=== PATIENT | female | born 1985 | race Caucasian/White ===

== ENCOUNTER 2016-10-08 13:50 | Emergency (ER) | payer BC ==
[~2016-10-08] VITALS: Ht 172.7 cm; Wt 155.4 kg
[2016-10-08 13:58] VITALS: TEMP 36.8; Ht 172.7 cm; Wt 155.4 kg
[2016-10-08] MEDS ORDERED: KETOROLAC TROMETHAMINE 60 MG/2 ML VIAL IM STA (15:15)
[2016-10-08] MEDS ORDERED: PROMETHAZINE HCL INJ 25 MG/ML 1 ML VIAL IM STA (15:15)
[2016-10-08] MEDS ORDERED: MoRPHine SULFATE 10 MG/ML CARP/VIAL IM STA (15:15)
[2016-10-08] MEDS ORDERED: SODIUM CHLORIDE 0.9% 1000ML 1,000 ML IV STA (15:15)
[2016-10-08 17:06] VITALS: BP 139/98; PULSE 79; O2SAT 99
--- NOTE | 2016-10-08 17:59 | EMERGENCY ROOM VISIT NOTE ---
History Report prepared by Weston: Linda Sherman Under the Supervision of: Dr. Juan Camacho D.O. First contact with patient: 15:06 Chief Complaint: HEADACHE Stated Complaint: SEVERE MIGRAINE NAUSEA DEHYDRATION History of Present Illness The patient is a 30 year old female who presents to the Emergency Room with complaints of a gradually worsening headache since yesterday. Currently, her pain is located on the left side of her head, and she rates her discomfort as an 8/10. Patient states that she recently developed a cough, rhinorrhea and sore throat 3 days prior to arrival. After visiting her PCP yesterday, she was diagnosed with a sinus infection and was given a nasal spray to use. Immediately after using the nasal spray yesterday afternoon, patient states that developed the headache, and despite going to sleep at 1930 last evening, it has continued to worsen since that time. Patient does have a history of migraines and states that her pain today feels typical of her past migraines, but just worse than usual, so she came to the ED for further evaluation. Patient is photophobic, and nauseous, but she denies change in vision, fevers, or weakness in her arms or legs. She states that she does feel dehydrated and is requesting IV fluids. Patient denies chest pain, shortness of breath, vomiting, diarrhea, pain with urination, and melena. Source of History: patient Onset: yesterday afternoon Position: head (left ) Symptom Intensity: 8/10 Quality: ache Timing: worsening Modifying Factors (Worsening): other (using nasal spray) Associated Symptoms: + nausea, No SOB, No abdominal pain, No chest pain, No diarrhea, No fevers, No melena, No urinary symptoms, No vomiting Note: Patient is photophobic. Review of Systems See HPI for pertinent positives & negatives. A total of 10 systems reviewed and were otherwise negative. Past Medical & Surgical Medical Problems: (1) Migraine Unspecified W/O Intractable Migraine (2) Obesity, Nos (3) Tonsillectomy Family History Diabetes mellitus Heart disease Social History Smoking Status: Never Smoker Alcohol Use: none Drug Use: none Marital Status: Housing Status: lives with family Occupation Status: employed Current/Historical Medications Scheduled Cholecalciferol (Vitamin D3), 2,000 UNITS PO DAILY Multivit/Min/Iron/Fol Ac/Pren ( Vitamin), 1 TAB PO DAILY Turmeric (Curcuma Longa) (Turmeric), 1,000 MG PO BID Scheduled PRN Kvwxufh-Dbzpsvviniqcd-Tskhidel (Excedrin Migraine), 2 TABS PO DAILY PRN for Migraine Sjytnfrfup-Chluzfc-Jfaqbxje (Butal/Asa/Caff), 1-2 CAP PO Q4H PRN for Migraine Clonazepam (Clonazepam), 1 MG PO BID PRN for Anxiety Oxycodone/Acetaminophen 5MG/325MG (Oxycodone/Acetaminophen 5MG/325MG), 1-2 TABS PO Q6H PRN for Migraine Promethazine Hcl (Phenergan), 25 MG PO Q4H PRN for Nausea Sumatriptan Succinate (Imitrex), 100 MG PO UD PRN for Migraine Allergies Coded Allergies: Cefuroxime (Verified Allergy, Intermediate, mouth ulcers, 10/08/16) Sulfa Drugs (Verified Allergy, Mild, 10/08/16) Ondansetron (Verified Allergy, Unknown, SWELLING, 10/08/16) Penicillins (Verified Allergy, Unknown, UNKN, 10/08/16) Tramadol (Verified Adverse Reaction, Unknown, MIGRAINE, 10/08/16) PT TOOK TRAMADOL THIS MORNING, THINKS MIGRAINE MIGHT BE FROM THAT Physical Exam Vital Signs Date Time Temp Pulse Resp B/P Pulse Ox O2 Delivery O2 Flow Rate FiO2 10/08/16 17:06 79 20 139/98 99 10/08/16 16:35 79 20 139/98 99 Room Air 10/08/16 13:58 36.8 95 19 138/91 96 Room Air Physical Exam GENERAL: Laying in bed, disheveled appearing but no acute distress. EYE EXAM: normal conjunctiva, PERRL and EOM's intact OROPHARYNX: no exudate, no erythema, lips, buccal mucosa, and tongue normal and mucous membranes are moist NECK: supple, no nuchal rigidity, no adenopathy, non-tender. No Brudzinski's sign. LUNGS: Clear to auscultation. Normal chest wall mechanics HEART: no murmurs, S1 normal and S2 normal ABDOMEN: abdomen soft, non-tender, normo-active bowel sounds, no masses, no rebound or guarding. BACK: Back is symmetrical on inspection and there is no deformity, no midline tenderness, no CVA tenderness. SKIN: no rashes and no bruising UPPER EXTREMITIES: upper extremities are grossly normal. LOWER EXTREMITIES: No pitting edema. NEURO EXAM: Normal sensorium, cranial nerves II-XII intact, normal speech, no weakness of arms, no weakness of legs. No drift. Finger to nose intact. Gross sensation intact. Medical Decision & Procedures Medications Administered Medications (Trade) Dose Ordered Sig/Vickey Route Start Time Stop Time Status Last Admin Dose Admin Morphine Sulfate (MoRPHine SULFATE INJ) 10 mg NOW STAT IM 10/08/16 15:15 10/08/16 15:17 DC 10/08/16 16:12 10 MG Promethazine HCl (Phenergan Inj) 25 mg NOW STAT IM 10/08/16 15:15 10/08/16 15:17 DC 10/08/16 16:11 25 MG Ketorolac Tromethamine (Toradol Inj) 60 mg NOW STAT IM 10/08/16 15:15 10/08/16 15:17 DC 10/08/16 16:11 60 MG ED Course ED COURSE: Vital signs were reviewed and showed hypertension. The patients medical record was reviewed The above diagnostic studies were performed and reviewed. ED treatments and interventions as stated above. 1508: The patient was evaluated in room C9. A complete history and physical examination was performed. 1515: NSS bolus IV, Toradol 60 mg IM, Phenergan 25 mg IM and Morphine Sulfate 10 mg IM were ordered. 1644: Upon reevaluation, the patient was feeling improved. She continued to refuse LP or a CT for further evaluation. Discharge instructions were discussed at this time. She verbalized her understanding and agreement with the treatment plan, and she is now ready for disposition. The patient remained stable while under my care. The patient appeared well at the time of discharge. Medical Decision Differential Diagnosis includes but is not limited to headache, tension headache , cluster headache, migraine, subarachnoid hemorrhage, meningitis, mass, central venous thrombus, concussion, trauma and epidural/subdural hemorrhage. Patient is a 30-year-old female who presents the ER for headache located on the left side associated with nausea. She notes that this feels like her previous migraines but slightly worse. Headache, gradual and gradually worsened. No fevers greater than 100.4, no signs of meningitis or encephalitis on exam. Patient did note that this is a severe headache and consequently I offered an LP and CT which she declined. She was given IM pain medications with improvement of her symptoms. I again offered CT and LP but she declined. I explained the risk and benefits to this and she was discharged following informed refusal of care. She is instructed not drive, work, operate heavy machinery for the next 12 hours. Discussed with Pt concerning signs and symptoms to watch out for. Pt was instructed to follow up with their PCP and discussed with the patient their option to return to the ED at anytime for persistent or worsening symptoms. The appropriate anticipatory guidance and out- patient management, including indications for return to the emergency department , were explained at length to the patient and understood. Impression Primary Impression: Cephalalgia Scribe Attestation The scribe's documentation has been prepared under my direction and personally reviewed by me in its entirety. I confirm that the note above accurately reflects all work, treatment, procedures, and medical decision making performed by me. Departure Information Dispostion Home / Self-Care Referrals Andrew Bee MD (PCP) Forms HOME CARE DOCUMENTATION FORM, IMPORTANT VISIT INFORMATION Patient Instructions A Signature Page, My [facility] [employer] Additional Instructions Please follow up with your primary care doctor with in the next 24 hours. Any worsening of your symptoms, please return to the ED immediately. This includes weakness in your arms or legs, change in vision, worsening headache, fevers greater than 100.4, or any other concerning signs or symptoms from your standpoint. Please not drive, work, operate heavy machinery for the next 12 hours with the medications are given in the ER.
[2017-03-12] MEDS ORDERED: PROM25TA9 PO (09:03)
[2017-03-12] MEDS ORDERED: ASPI-390 PO (10:58)
[2017-03-12] MEDS ORDERED: IMT100 PO (12:31)
[2017-03-12] MEDS ORDERED: CETI10TA84 PO (15:34)
[2017-03-12] MEDS ORDERED: CHOL2000 PO (15:57)
[2017-03-12] MEDS ORDERED: TURM1CAP4 PO (16:03)
[2017-03-12] MEDS ORDERED: KLN1X PO (16:07)
[2017-03-12] MEDS ORDERED: BUTACAP7 PO (16:07)
[2017-03-12] MEDS ORDERED: PRENTAB26 PO (17:20)
== END 2016-10-08 17:07 | disposition home or self-care (01) ==
LOC: C.EDB 13:53 → C.EDC 17:07
DX: R51 Headache (principal); Z79.899 Other long term (current) drug therapy; Z98.890 Other specified postprocedural states; Z83.3 Family history of diabetes mellitus; Z82.49 Family history of ischemic heart disease and other diseases of the circulatory system; Z88.0 Allergy status to penicillin; Z88.2 Allergy status to sulfonamides; Z88.5 Allergy status to narcotic agent

== ENCOUNTER 2016-10-16 15:10 | Emergency (ER) | payer BC ==
[~2016-10-16] VITALS: Ht 170.2 cm; Wt 153.0 kg
[2016-10-16 15:19] VITALS: TEMP 36.7; Ht 170.2 cm; Wt 153.0 kg
[2016-10-16] MEDS ORDERED: PROMETHAZINE HCL INJ 25 MG/ML 1 ML VIAL IM STA (15:34)
[2016-10-16] MEDS ORDERED: KETOROLAC TROMETHAMINE 60 MG/2 ML VIAL IM STA (15:34)
[2016-10-16] MEDS ORDERED: MoRPHine SULFATE 10 MG/ML CARP/VIAL IM STA (15:34)
[2016-10-16] MEDS ORDERED: DOXY100C2 PO (15:43)
[2016-10-16] MEDS ORDERED: BENZ100C84 PO (15:43)
[2016-10-16] MEDS ORDERED: ASTN NAE (15:43)
[2016-10-16] MEDS ORDERED: GUAISYP4 PO (15:43)
--- NOTE | 2016-10-16 15:49 | EMERGENCY ROOM VISIT NOTE ---
History Report prepared by Weston: Dalila Mejias Under the Supervision of: Dr. Ignrid Castanon M.D. First contact with patient: 15:25 Chief Complaint: HEADACHE Stated Complaint: SEVERE MIGRAINE, NAUSEA History of Present Illness The patient is a 31 year old female who presents to the Emergency Room with complaints of a constant headache that started yesterday. She states that this is not the same as her typical headaches because she can't get rid of it due to her cough. She started experiencing a cough 2 weeks ago and saw her PCP. She went back to her PCP and was diagnosed with a sinus infection 1 week ago. She is supposed to started Levaquin tomorrow because the doxycycline wasn't working. She has not checked her temperature for a fever. She is also experiencing photophobia. Source of History: patient Onset: yesterday Position: head Quality: other (headache) Timing: constant Note: photophobia Review of Systems See HPI for pertinent positives & negatives. A total of 10 systems reviewed and were otherwise negative. Past Medical & Surgical Medical Problems: (1) Migraine Unspecified W/O Intractable Migraine (2) Obesity, Nos (3) Tonsillectomy Family History Diabetes mellitus Heart disease Social History Smoking Status: Never Smoker Alcohol Use: none Drug Use: none Marital Status: Housing Status: lives with family Occupation Status: employed Current/Historical Medications Scheduled Azelastine Hcl (Astelin Nasal [place]), 1 SPRAY [place]KE BID Cholecalciferol (Vitamin D3), 2,000 UNITS PO DAILY Doxycycline Hyclate (Vibramycin), 100 MG PO BID Multivit/Min/Iron/Fol Ac/Pren ( Vitamin), 1 TAB PO DAILY Turmeric (Curcuma Longa) (Turmeric), 1,000 MG PO BID Scheduled PRN Jufmygo-Jdpoxablyqzjs-Aiytxezn (Excedrin Migraine), 2 TABS PO DAILY PRN for Migraine Benzonatate (Tessalon Perles), 100 MG PO Q8 PRN for Cough Cdpvgnhkfy-Sbwgrgf-Iryktkll (Butal/Asa/Caff), 1-2 CAP PO Q4H PRN for Migraine Clonazepam (Clonazepam), 1 MG PO BID PRN for Anxiety Guaifenesin/Codeine (Robitussin-Ac Syrup), 5 ML PO Q4 PRN for Cough Oxycodone/Acetaminophen 5MG/325MG (Oxycodone/Acetaminophen 5MG/325MG), 1-2 TABS PO Q6H PRN for Migraine Promethazine Hcl (Phenergan), 25 MG PO Q4H PRN for Nausea Sumatriptan Succinate (Imitrex), 100 MG PO UD PRN for Migraine Allergies Coded Allergies: Cefuroxime (Verified Allergy, Intermediate, mouth ulcers, 10/08/16) Sulfa Drugs (Verified Allergy, Mild, 10/08/16) Ondansetron (Verified Allergy, Unknown, SWELLING, 10/08/16) Penicillins (Verified Allergy, Unknown, UNKN, 10/08/16) Tramadol (Verified Adverse Reaction, Unknown, MIGRAINE, 10/08/16) PT TOOK TRAMADOL THIS MORNING, THINKS MIGRAINE MIGHT BE FROM THAT Physical Exam Vital Signs Date Time Temp Pulse Resp B/P Pulse Ox O2 Delivery O2 Flow Rate FiO2 10/16/16 16:36 86 18 125/75 100 Room Air 10/16/16 15:19 36.7 111 22 162/101 98 Room Air Physical Exam Vital signs reviewed. General: Well-appearing female, in no significant distress. HEENT: No scleral icterus, PERRLA, neck supple. Atraumatic. Cardiovascular: Regular rate and rhythm, no extra sounds. Pulmonary: Clear to auscultation bilaterally, normal work of breathing. Abdomen: Soft, nontender, nondistended, positive bowel sounds. Musculoskeletal: Atraumatic, no peripheral edema. Neurologic: Patient awake alert and oriented x 3, full strength in all 4 extremities. Cranial nerves 2 through 12 grossly intact. Skin: Warm, dry, no rash Medical Decision & Procedures Medications Administered Medications (Trade) Dose Ordered Sig/Vickey Route Start Time Stop Time Status Last Admin Dose Admin Morphine Sulfate (MoRPHine SULFATE INJ) 10 mg NOW STAT IM 10/16/16 15:34 10/16/16 15:36 DC 10/16/16 15:56 10 MG Promethazine HCl (Phenergan Inj) 25 mg NOW STAT IM 10/16/16 15:34 10/16/16 15:36 DC 10/16/16 15:55 25 MG Ketorolac Tromethamine (Toradol Inj) 60 mg NOW STAT IM 10/16/16 15:34 10/16/16 15:36 DC 10/16/16 15:55 60 MG ED Course 1533: Past medical records reviewed. The patient was evaluated in room C4. A complete history and physical examination was performed. 1534: Ordered Toradol 60 mg IM, Phenergan 25 mg IM, Morphine Sulfate 10 mg IM 1644: Upon reevaluation, the patient appeared to have improvement of her symptoms. I discussed findings with her. She verbalized agreement of the treatment plan. She was discharged home. Medical Decision The patient is a 31 year old female who presents to the Emergency Room with complaints of a constant headache that started yesterday. Differentials include migraine headache, meningitis, sinusitis, CO exposure, ICH, SAH, infection, tumor, headache, sinus thrombosis, arterial dissection. This pt was evaluated and appeared to be in some discomfort. Patient's physical exam is fairly unrevealing. The patient was medicated with IM morphine , phenergan and Toradol. She had significant improvement in her symptoms. Pt was d/c to care of her to f/u with her primary care physician this week. She will return to the ER for worsening of symptoms or any medical concerns. Impression Primary Impression: Migraine headache without aura Scribe Attestation The scribe's documentation has been prepared under my direction and personally reviewed by me in its entirety. I confirm that the note above accurately reflects all work, treatment, procedures, and medical decision making performed by me. Departure Information Dispostion Home / Self-Care Referrals Andrew Bee MD (PCP) Forms HOME CARE DOCUMENTATION FORM, IMPORTANT VISIT INFORMATION Patient Instructions My [facility] Additional Instructions Diagnosis: Migraine headache Continue medications as prescribed. Drink plenty of water. Follow-up with your physician for reevaluation. Return to the ER for worsening of symptoms or any medical concerns. Problem Qualifiers Primary Impression: Migraine headache without aura Status migrainosus presence: with status migrainosus Intractability: intractable Qualified Codes: G43.011 - Migraine without aura, intractable, with status migrainosus
[2016-10-16 16:36] VITALS: BP 125/75; PULSE 86; O2SAT 100
[2017-03-12] MEDS ORDERED: PROM25TA9 PO (09:03)
[2017-03-12] MEDS ORDERED: ASPI-390 PO (10:58)
[2017-03-12] MEDS ORDERED: IMT100 PO (12:31)
[2017-03-12] MEDS ORDERED: CETI10TA84 PO (15:34)
[2017-03-12] MEDS ORDERED: CHOL2000 PO (15:57)
[2017-03-12] MEDS ORDERED: TURM1CAP4 PO (16:03)
[2017-03-12] MEDS ORDERED: BUTACAP7 PO (16:07)
[2017-03-12] MEDS ORDERED: KLN1X PO (16:07)
[2017-03-12] MEDS ORDERED: PRENTAB26 PO (17:20)
== END 2016-10-16 17:01 | disposition home or self-care (01) ==
LOC: C.EDB 15:11 → C.EDC 17:01
DX: G43.709 Chronic migraine without aura, not intractable, without status migrainosus (principal); E66.9 Obesity, unspecified; Z98.890 Other specified postprocedural states; Z88.0 Allergy status to penicillin; Z88.2 Allergy status to sulfonamides; Z88.8 Allergy status to other drugs, medicaments and biological substances; Z83.3 Family history of diabetes mellitus; Z82.49 Family history of ischemic heart disease and other diseases of the circulatory system

== ENCOUNTER 2016-10-19 16:14 | Emergency (ER) | payer BC ==
[~2016-10-19] VITALS: Ht 170.2 cm; Wt 152.8 kg
[~2016-10-19 16:14] MED LIST: ASTN NAE; BENZ100C84 PO; DOXY100C2 PO; GUAISYP4 PO
[2016-10-19 16:19] VITALS: TEMP 36.7; Ht 170.2 cm; Wt 152.8 kg
[2016-10-19] MEDS ORDERED: LEVO1TAB33 PO (17:33)
[2016-10-19] MEDS ORDERED: SODIUM CHLORIDE 0.9% 1000ML 1,000 ML IV STA (17:35)
[2016-10-19] MEDS ORDERED: KETOROLAC TROMETHAMINE 30 MG/ML VIAL IV STA (17:35)
[2016-10-19] MEDS ORDERED: PROMETHAZINE HCL INJ 25 MG in SODIUM CHLORIDE 0.9% 50ML 50 ML IV STA (17:35)
[2016-10-19] MEDS ORDERED: PROMETHAZINE HCL INJ 25 MG/ML 1 ML VIAL IM STA (18:27)
[2016-10-19] MEDS ORDERED: KETOROLAC TROMETHAMINE 60 MG/2 ML VIAL IM STA (18:27)
[2016-10-19] MEDS ORDERED: ACETAMINOPHEN 500 MG TAB PO STA (21:05)
[2016-10-19] MEDS ORDERED: PROMETHAZINE HCL INJ 12.5 MG in SODIUM CHLORIDE 0.9% 50ML 50 ML IV STA (21:05)
[2016-10-19 21:30] LABS: ALKALINE PHOSPHATASE 75 U/L (45-117); ALT/SGPT 30 U/L (12-78); BLOOD UREA NITROGEN 16 mg/dl (7-18); BUN/CREATININE RATIO 18.7 (10-20); CALCIUM 8.2 mg/dl (8.5-10.1); CARBON DIOXIDE 19 mmol/L (21-32); CHLORIDE 109 mmol/L (98-107); CREATININE 0.84 mg/dl (0.60-1.20); GLUCOSE 75 mg/dl (70-99); SODIUM 142 mmol/L (136-145)
[2016-10-19 21:40] LABS: BASO % 0.2 %; BASO ABS # 0.02 K/uL (0-0.2); COMPLETE YES; EOS % 0.1 %; HEMATOCRIT 42.3 % (37-47); IG% 0.4 %; LYMPH % 17.5 %; LYMPH ABS # 1.85 K/uL (1.2-3.4); MEAN CELL VOLUME 90.6 fL (80-100); MEAN CORPUSCULAR HEMOGLOBIN 32.3 pg (25-34); MEAN CORPUSCULAR HGB CONC 35.7 g/dl (32-36); MEAN PLATELET VOLUME 9.5 fL (7.4-10.4); NEUT % 75.8 %; PLATELET COUNT 248 K/uL (130-400); RED BLOOD COUNT 4.67 M/uL (4.2-5.4); WHITE BLOOD COUNT 10.57 K/uL (4.8-10.8)
[2016-10-19] MEDS ORDERED: PROM1SUP19 PR (21:41)
--- NOTE | 2016-10-19 21:43 | EMERGENCY ROOM VISIT NOTE ---
History First contact with patient: 17:27 Chief Complaint: VOMITING Stated Complaint: SEVER NAUSEA, VOMITING, ABD PAIN Nursing Triage Summary: Pt seen here Fri for a migraine. Pt reports n/v/d and diffuse abd pain since midnight. History of Present Illness The patient is a 31 year old female who is well-known to the emergency room department presents to the Emergency Room with complaints of diffuse abdominal pain, nausea, vomiting, diarrhea that started at midnight. The patient denies any fever, chest pain or shortness of breath. The patient does admit she's had recent cold symptoms which she was initially on doxycycline and yesterday was switched to Levaquin. The patient denies any urinary symptoms of frequency, urgency, dysuria. The patient denies any back pain. The patient does admit that a coworker has similar symptoms. The patient has not been able to keep anything down today. Review of Systems 10 system review was performed and was negative unless stated otherwise history of present illness. Past Medical/Surgical History Medical Problems: (1) Migraine Unspecified W/O Intractable Migraine (2) Obesity, Nos (3) Tonsillectomy Family History Diabetes mellitus Heart disease Social History Smoking Status: Never Smoker Alcohol Use: none Drug Use: none Marital Status: Housing Status: lives with family Occupation Status: employed Current/Historical Medications Scheduled Azelastine Hcl (Astelin Nasal [place]), 1 SPRAY DUKE BID Cholecalciferol (Vitamin D3), 2,000 UNITS PO DAILY Doxycycline Hyclate (Vibramycin), 100 MG PO BID Levofloxacin (Levaquin), 1 TAB PO DAILY Multivit/Min/Iron/Fol Ac/Pren ( Vitamin), 1 TAB PO DAILY Turmeric (Curcuma Longa) (Turmeric), 1,000 MG PO BID Scheduled PRN Vjrrlbl-Zwnbqwxcejbio-Cbwuphpb (Excedrin Migraine), 2 TABS PO DAILY PRN for Migraine Benzonatate (Tessalon Perles), 100 MG PO Q8 PRN for Cough Swilmbbjiq-Sohbgds-Bpyqxhwc (Butal/Asa/Caff), 1-2 CAP PO Q4H PRN for Migraine Clonazepam (Clonazepam), 1 MG PO BID PRN for Anxiety Guaifenesin/Codeine (Robitussin-Ac Syrup), 5 ML PO Q4 PRN for Cough Oxycodone/Acetaminophen 5MG/325MG (Oxycodone/Acetaminophen 5MG/325MG), 1-2 TABS PO Q6H PRN for Migraine Promethazine Hcl (Phenergan), 25 MG PO Q4H PRN for Nausea Sumatriptan Succinate (Imitrex), 100 MG PO UD PRN for Migraine Allergies Coded Allergies: Cefuroxime (Verified Allergy, Intermediate, mouth ulcers, 10/08/16) Sulfa Drugs (Verified Allergy, Mild, 10/08/16) Ondansetron (Verified Allergy, Unknown, SWELLING, 10/08/16) Penicillins (Verified Allergy, Unknown, UNKN, 10/08/16) Tramadol (Verified Adverse Reaction, Unknown, MIGRAINE, 10/08/16) PT TOOK TRAMADOL THIS MORNING, THINKS MIGRAINE MIGHT BE FROM THAT Physical Exam Vital Signs Date Time Temp Pulse Resp B/P Pulse Ox O2 Delivery O2 Flow Rate FiO2 10/19/16 21:13 88 22 145/91 99 Room Air 10/19/16 19:10 105 20 130/91 95 Room Air 10/19/16 16:19 36.7 126 20 139/95 98 Room Air Physical Exam GENERAL: Obese 31-year-old white female appears in no acute distress. MENTAL STATUS: Alert and oriented 3 EYES: No icterus noted MOUTH: Mucosa is moist NECK: Supple, no lymphadenopathy noted. No carotid bruits noted. LUNGS: Clear auscultation without wheezes rales or rhonchi. CARDIAC: Regular rate and rhythm without murmur. Pulses is full and equal throughout. BACK: No CVA tenderness noted. ABDOMEN: Positive bowel sounds all 4 quadrants. Soft, generalized tenderness to palpation throughout. No organomegaly or masses noted. EXTREMITIES: No cyanosis or edema noted. Medical Decision & Procedures Laboratory Results 10/19/16 20:38 Test 10/19/16 20:38 Anion Gap 14.0 mmol/L (3-11) Est Creatinine Clear Calc Drug Dose 150.3 ml/min Estimated GFR () 107.3 Estimated GFR (Non- 92.6 BUN/Creatinine Ratio 18.7 (10-20) Calcium Level 8.2 mg/dl (8.5-10.1) Total Bilirubin 0.6 mg/dl (0.2-1) Direct Bilirubin mg/dl (0-0.2) Aspartate Amino Transf (AST/SGOT) U/L (15-37) Alanine Aminotransferase (ALT/SGPT) 30 U/L (12-78) Alkaline Phosphatase 75 U/L (45-117) Total Protein 6.9 gm/dl (6.4-8.2) Albumin 3.3 gm/dl (3.4-5.0) Lipase 73 U/L (73-393) Medications Administered Medications (Trade) Dose Ordered Sig/Vickey Route Start Time Stop Time Status Last Admin Dose Admin Sodium Chloride (Nss 1000ml) 1,000 ml @ 999 mls/hr Q1H1M STAT IV 10/19/16 17:35 10/19/16 18:35 DC 10/19/16 20:03 999 MLS/HR Ketorolac Tromethamine (Toradol Inj) 60 mg NOW STAT IM 10/19/16 18:27 10/19/16 18:28 DC 10/19/16 18:39 60 MG Promethazine HCl (Phenergan Inj) 25 mg NOW STAT IM 10/19/16 18:27 10/19/16 18:28 DC 10/19/16 18:39 25 MG Acetaminophen 1000 mg 1,000 mg NOW STAT PO 10/19/16 21:05 10/19/16 21:07 DC 10/19/16 21:15 1,000 MG Promethazine HCl/ Sodium Chloride (Phenergan Inj/ Nss 50ml) 50.5 ml @ 204 mls/hr NOW STAT IV 10/19/16 21:05 10/19/16 21:19 DC 10/19/16 21:05 204 MLS/HR ED Course The patient was evaluated. The patient's EMR was reviewed. The patient is on a narcotic injection treatment plan for her migraine headaches. She has already received 2 narcotic injections this month. IV access was obtained. She was given 1 L normal saline wide-open. CBC and differential, renal profile , LFTs and lipase levels was ordered. Stool studies were ordered for C. difficile, culture and WBCs. The patient was given Toradol 60 mg IM for pain and Phenergan 25 mg IM for nausea since the nurses could not access her veins. IV team was called but took over 1 hour to come to the emergency room to draw labs. They got IV access but were unable to take blood from the vein therefore they did finger sticks to get the blood. She was able to receive the saline IV. The patient was in the emergency room for extended period of time due to difficulty with the patient's veins therefore she was given additional Tylenol 1 g by mouth for pain and Phenergan 12.5 mg IV for nausea.. The patient was reevaluated on several occasions while in the emergency room. Labs are reviewed and were unremarkable. The patient was unable to give a stool sample while in the emergency room. She will do this as an outpatient. The patient is in agreement with treatment plan and was discharged home in stable condition. Medical Decision Differential diagnoses include reflux, gastritis, gastroenteritis, pancreatitis , cholelithiasis, cholecystitis, appendicitis, mesenteric ischemia, pyelonephritis, urinary tract infection, renal colic, diverticulitis, shingles, bowel obstruction, intussusception, hernia, ovarian torsion, ruptured ovarian cyst, ectopic , . Impression Primary Impression: Gastroenteritis Departure Information Dispostion Home / Self-Care Condition [employer] Prescriptions Promethazine (Phenergan Suppository) 25 Mg Supp 25 MG MO Q4H Y for Nausea, #10 SUPP NAUSEA Prov: Katia Means PA-C 10/19/16 Referrals Andrew Bee MD (PCP) Forms HOME CARE DOCUMENTATION FORM, IMPORTANT VISIT INFORMATION Patient Instructions ED Diet Vomiting Diarrhea, My [employer] Additional Instructions Push fluids. Follow bland diet. Advance diet slowly as tolerated. Take Phenergan suppositories as needed for nausea and vomiting. Tylenol as needed for pain. Also recommend [id number] Zantac as needed for stomach upset. Obtaining the stool samples and bring them to the lab as directed. Further evaluation and treatment will be based on results. If you have any worsening of symptoms, return to ER.
[2016-10-19 22:01] VITALS: BP 160/87; PULSE 98; O2SAT 97
[2017-03-12] MEDS ORDERED: PROM25TA9 PO (09:03)
[2017-03-12] MEDS ORDERED: ASPI-390 PO (10:58)
[2017-03-12] MEDS ORDERED: IMT100 PO (12:31)
[2017-03-12] MEDS ORDERED: CETI10TA84 PO (15:34)
[2017-03-12] MEDS ORDERED: CHOL2000 PO (15:57)
[2017-03-12] MEDS ORDERED: TURM1CAP4 PO (16:03)
[2017-03-12] MEDS ORDERED: KLN1X PO (16:07)
[2017-03-12] MEDS ORDERED: BUTACAP7 PO (16:07)
[2017-03-12] MEDS ORDERED: PRENTAB26 PO (17:20)
== END 2016-10-19 22:03 | disposition home or self-care (01) ==
LOC: C.EDB 16:15
DX: K52.9 Noninfective gastroenteritis and colitis, unspecified (principal); E66.9 Obesity, unspecified; Z68.43 Body mass index [BMI] 50.0-59.9, adult

== ENCOUNTER → 2016-10-20 | Outpatient (CLI) | payer BC ==
[~2016-10-20] MED LIST changes: +ASPI-390 PO; +BUTACAP7 PO; +CETI10TA84 PO; +CHOL2000 PO; +IMT100 PO; +KLN1X PO; +LEVO1TAB33 PO; +OXYC-643 PO; +PRENTAB26 PO; +PROM1SUP19 PR; +PROM25TA9 PO; +TURM1CAP4 PO
== END | disposition home or self-care (01) ==
LOC: C.LABSPEC 17:28
PROVIDERS: ATTEND Emergency Medicine
DX: R19.7 Diarrhea, unspecified (principal)

== ENCOUNTER 2016-11-11 14:06 | Emergency (ER) | payer BC ==
[~2016-11-11] VITALS: Ht 170.2 cm; Wt 152.6 kg
[~2016-11-11 14:06] MED LIST changes: -ASPI-390 PO; -BUTACAP7 PO; -CETI10TA84 PO; -CHOL2000 PO; -IMT100 PO; -KLN1X PO; -OXYC-643 PO; -PRENTAB26 PO; -PROM25TA9 PO; -TURM1CAP4 PO
[2016-11-11 14:09] VITALS: TEMP 36.6; Ht 170.2 cm; Wt 152.6 kg
[2016-11-11] MEDS ORDERED: PROMETHAZINE HCL INJ 25 MG/ML 1 ML VIAL IM STA ×2 (14:21→14:26)
[2016-11-11] MEDS ORDERED: KETOROLAC TROMETHAMINE 60 MG/2 ML VIAL IM STA (14:21)
[2016-11-11] MEDS ORDERED: MoRPHine SULFATE 10 MG/ML CARP/VIAL IM STA (14:21)
--- NOTE | 2016-11-11 14:29 | EMERGENCY ROOM VISIT NOTE ---
ED Visit Note First contact with patient: 14:13 CHIEF COMPLAINT: Migraine headache HISTORY OF PRESENT ILLNESS: This 31-year-old female patient presented to the emergency department via private vehicle accompanied by male friend with a gradual onset of a severe generalized headache that started this past or Wednesday and is gradually increased. The patient states the migraine is similar to their typical migraines. There has been associated photophobia, phonophobia, nausea and no vomiting. The patient denies fever or chills recently , and there is no weakness or numbness of the extremities. There is no difficulty with speech or vision. No trauma to the head and no neck pain. The pain is severe, constant, and it is slowly increasing in severity. The patient rates the pain as a 7 her typical medications to include Phenergan, Excedrin, ibuprofen, Percocet, Imitrex, Fioricet without relief. This is not the worst headache of the life and is similar to previous migraines. Previous imaging studies of the brain have been normal. She follows with a neurologist. The headache is located in the front portion of her head. REVIEW OF SYSTEMS: A review of systems was performed with positives and pertinent negatives listed in the history of present illness. All other systems were reviewed and are negative. ALLERGIES: As noted below MEDICATIONS: As noted below PMH: As noted below SOCIAL HISTORY: Patient lives at home. PHYSICAL EXAM: Vital Signs: Reviewed Nurse's notes, vital signs stable. GENERAL : 31-year-old female, who appears in pain, but non toxic in appearance and in no acute distress. MENTAL STATUS: Alert, oriented, and coherent. HEENT: Normocephalic. PERRLA. EOMI. Nares patent without nuchal rigidity. Tympanic membranes pearly silva without erythema or effusion bilaterally. Mucous membranes moist. NECK: Supple, no nuchal rigidity, nontender, no lymphadenopathy. HEART: Regular rhythm and normal rate without murmurs, ectopy, gallops, or rubs. LUNGS: Clear to auscultation bilaterally without wheezes, rales or rhonchi. No dullness to percussion. No accessory muscle use. No retractions. SKIN: Normal. NEUROLOGICAL: Pupils are round, equal and react to light. The patient moves all extremities well and the gait is normal. EMERGENCY DEPARTMENT COURSE: I examined the patient. The patient is on a 2 narcotic injection per month treatment plan for their migraines. The patient was given 2 mg of morphine IM, 25 mg of Phenergan IM, and 60 mg of Toradol per their usual protocol. The differential diagnosis includes acute intracranial bleed, meningitis, encephalitis, mass or mass effect, sinusitis, infection, tumor, headache, temporal arteritis and carbon monoxide exposure, and migraine. The patient was discharged home in stable condition with male friend driving. In the evaluation and treatment of this patient, the following differential diagnoses were considered: Migraine Headache, Intracranial Hemorrhage, Subdural Hematoma, Subarachnoid Hemorrhage, Cerebral Aneurysm, Temporal/Giant Cell Arteritis, Tension Headache, Meningitis, Encephalitis, or Hydrocephalus. Problem List Medical Problems: (1) Migraine Unspecified W/O Intractable Migraine Status: Chronic (2) Obesity, Nos Status: Chronic (3) Tonsillectomy Status: Resolved Current/Historical Medications Scheduled Azelastine Hcl (Astelin Nasal [place]), 1 SPRAY [place] BID Cholecalciferol (Vitamin D3), 2,000 UNITS PO DAILY Doxycycline Hyclate (Vibramycin), 100 MG PO BID Levofloxacin (Levaquin), 1 TAB PO DAILY Multivit/Min/Iron/Fol Ac/Pren ( Vitamin), 1 TAB PO DAILY Turmeric (Curcuma Longa) (Turmeric), 1,000 MG PO BID Scheduled PRN Wkwssmg-Cbcmyjgorjxrx-Lxvicntf (Excedrin Migraine), 2 TABS PO DAILY PRN for Migraine Benzonatate (Tessalon Perles), 100 MG PO Q8 PRN for Cough Rlfvnbciee-Kbjbffd-Zcrprtfu (Butal/Asa/Caff), 1-2 CAP PO Q4H PRN for Migraine Clonazepam (Clonazepam), 1 MG PO BID PRN for Anxiety Guaifenesin/Codeine (Robitussin-Ac Syrup), 5 ML PO Q4 PRN for Cough Oxycodone/Acetaminophen 5MG/325MG (Oxycodone/Acetaminophen 5MG/325MG), 1-2 TABS PO Q6H PRN for Migraine Promethazine (Phenergan Suppository), 25 MG [place] Q4H PRN for Nausea Promethazine Hcl (Phenergan), 25 MG PO Q4H PRN for Nausea Sumatriptan Succinate (Imitrex), 100 MG PO UD PRN for Migraine Allergies Coded Allergies: Cefuroxime (Verified Allergy, Intermediate, mouth ulcers, 10/08/16) Sulfa Drugs (Verified Allergy, Mild, 10/08/16) Ondansetron (Verified Allergy, Unknown, SWELLING, 10/08/16) Penicillins (Verified Allergy, Unknown, UNKN, 10/08/16) Tramadol (Verified Adverse Reaction, Unknown, MIGRAINE, 10/08/16) PT TOOK TRAMADOL THIS MORNING, THINKS MIGRAINE MIGHT BE FROM THAT Vital Signs Date Time Temp Pulse Resp B/P Pulse Ox O2 Delivery O2 Flow Rate FiO2 11/11/16 14:52 88 18 131/94 96 11/11/16 14:09 36.6 89 18 136/86 98 Room Air Medications Administered Medications (Trade) Dose Ordered Sig/Vickey Route Start Time Stop Time Status Last Admin Dose Admin Morphine Sulfate (MoRPHine SULFATE INJ) 10 mg NOW STAT IM 11/11/16 14:21 11/11/16 14:24 DC 11/11/16 14:39 10 MG Ketorolac Tromethamine (Toradol Inj) 60 mg NOW STAT IM 11/11/16 14:21 11/11/16 14:24 DC 11/11/16 14:40 60 MG Promethazine HCl (Phenergan Inj) 25 mg NOW STAT IM 11/11/16 14:26 11/11/16 14:28 DC 11/11/16 14:40 25 MG Departure Information Impression Primary Impression: Headache Dispostion Home / Self-Care Condition GOOD Referrals Andrew Bee MD (PCP) Patient Instructions My [facility] Additional Instructions You have been treated in the Emergency Department for a Headache. You have received pain medicine in the emergency department which impairs your ability to operate a vehicle. It is illegal for you to drive after receiving these medicines. For pain control, you can use the following aiqn-ynp-omfdayc medicines (if >12 yo): - Regular strength (325mg/tab) Tylenol (acetaminophen) 2 tabs every 4-6 hours as needed. Do not exceed 12 tablets in a 24 hour period. Avoid taking more than 4 grams (4000 mg) of Tylenol per day. This includes any other sources of acetaminophen you may take on a regular basis. - Regular strength (200 mg/tab) Advil (ibuprofen) 1-2 tabs every 4-6 hours as needed. Do not exceed a dose of 3200 mg per day. You should relax in a quiet, dark place for the rest of the day. Avoid any possible triggers including: cigarette smoke, caffeine, nicotine, chocolate, wine, beer, loud noises or music, or bright lights. You should schedule a follow-up appointment in 2-3 days with your Primary Care Provider or established Neurologist for further evaluation and treatment of your Headache. Return to the Emergency Department if your current symptoms worsen despite treatment course outlined above, or if you develop any of the following symptoms : intractable pain despite aforementioned treatment course, visual disturbances , loss of vision, unilateral weakness or facial drooping, slurring of speech, loss of coordination, or loss of consciousness. Please return to the emergency department with any new/concerning symptoms. Problem Qualifiers Primary Impression: Headache Headache type: unspecified Headache chronicity pattern: chronic headache Intractability: not intractable Qualified Codes: R51 - Headache
[2016-11-11 14:52] VITALS: BP 131/94; PULSE 88; O2SAT 96
[2017-03-12] MEDS ORDERED: PROM25TA9 PO (09:03)
[2017-03-12] MEDS ORDERED: ASPI-390 PO (10:58)
[2017-03-12] MEDS ORDERED: IMT100 PO (12:31)
[2017-03-12] MEDS ORDERED: CETI10TA84 PO (15:34)
[2017-03-12] MEDS ORDERED: CHOL2000 PO (15:57)
[2017-03-12] MEDS ORDERED: TURM1CAP4 PO (16:03)
[2017-03-12] MEDS ORDERED: BUTACAP7 PO (16:07)
[2017-03-12] MEDS ORDERED: KLN1X PO (16:07)
[2017-03-12] MEDS ORDERED: PRENTAB26 PO (17:20)
== END 2016-11-11 14:53 | disposition home or self-care (01) ==
LOC: C.EDB 14:07 → C.EDD 14:53
DX: R51 Headache (principal); E66.9 Obesity, unspecified; Z79.899 Other long term (current) drug therapy

== ENCOUNTER 2016-11-20 14:34 | Emergency (ER) | payer BC ==
[~2016-11-20] VITALS: Ht 170.2 cm; Wt 149.2 kg
[2016-11-20 14:38] VITALS: TEMP 36.8; Ht 170.2 cm; Wt 149.2 kg
[2016-11-20] MEDS ORDERED: PROMETHAZINE HCL INJ 25 MG/ML 1 ML VIAL IM STA (15:09)
[2016-11-20] MEDS ORDERED: KETOROLAC TROMETHAMINE 60 MG/2 ML VIAL IM STA (15:09)
[2016-11-20] MEDS ORDERED: MoRPHine SULFATE 10 MG/ML CARP/VIAL IM STA (15:09)
--- NOTE | 2016-11-20 15:28 | EMERGENCY ROOM VISIT NOTE ---
ED Visit Note First contact with patient: 14:52 CHIEF COMPLAINT: Migraine headache HISTORY OF PRESENT ILLNESS: This 31-year-old female patient presented to the emergency department ambulatory with a gradual onset of a severe generalized headache that started 3 days ago. The patient states the migraine is similar to their typical migraines. There has been associated photophobia, phonophobia, nausea and vomiting. The patient denies fever or chills recently, and there is no weakness or numbness of the extremities. There is no difficulty with speech or vision. No trauma to the head and no neck pain. The pain is severe, constant , and it is slowly increasing in severity. The patient rates the pain as throbbing and 7/10. The pain is located in the left frontal region. The patient has taken Imitrex and Phenergan without relief. This is not the worst headache of the life and is similar to previous migraines. Previous imaging studies of the brain have been normal. The patient does report that her heart rate and blood pressure are elevated, but this is normal for her when she has migraines. REVIEW OF SYSTEMS: A review of systems was performed with positives and pertinent negatives listed in the history of present illness. All other systems were reviewed and are negative. ALLERGIES: Cefuroxime, Zofran, penicillins, sulfa drugs, tramadol MEDICATIONS: See medication list PMH: Migraine headaches, tonsillectomy, melanoma, insulin resistance SOCIAL HISTORY: The patient lives locally with her . Nonsmoker, admits to occasional alcohol use. PHYSICAL EXAM: Vital Signs: Reviewed Nurse's notes, vital signs stable. GENERAL : This is a 31-year-old female, who appears in pain, but non toxic in appearance and in no acute distress. MENTAL STATUS: Alert, oriented, and coherent. HEENT: Normocephalic. PERRLA. EOMI. Nares patent without nuchal rigidity. Tympanic membranes pearly silva without erythema or effusion bilaterally. Mucous membranes moist. NECK: Supple, no nuchal rigidity, nontender, no lymphadenopathy. HEART: Regular rhythm and normal rate without murmurs, ectopy, gallops, or rubs. LUNGS: Clear to auscultation bilaterally without wheezes, rales or rhonchi. No dullness to percussion. No accessory muscle use. No retractions. SKIN: Normal. NEUROLOGICAL: Pupils are round, equal and react to light. The optic fundi are normal and the discs are flat. The patient moves all extremities well and the gait is normal. EMERGENCY DEPARTMENT COURSE: I examined the patient. The patient is on a 2 narcotic injection per month treatment plan for their migraines. The patient was given 10 mg morphine IM, 60 mg Toradol IM, and 25 mg Phenergan IM per their usual protocol. The differential diagnosis includes acute intracranial bleed, meningitis, encephalitis, mass or mass effect, sinusitis, infection, tumor, headache, temporal arteritis and carbon monoxide exposure, and migraine. The patient was discharged home in stable condition with her significant other driving. DIAGNOSIS: Migraine headache Problem List Medical Problems: (1) Migraine Unspecified W/O Intractable Migraine Status: Chronic (2) Obesity, Nos Status: Chronic (3) Tonsillectomy Status: Resolved Current/Historical Medications Scheduled Cholecalciferol (Vitamin D3), 2,000 UNITS PO DAILY Multivit/Min/Iron/Fol Ac/Pren ( Vitamin), 1 TAB PO DAILY Turmeric (Curcuma Longa) (Turmeric), 1,000 MG PO BID Scheduled PRN Khkvnve-Hlxjlhnwvdsqb-Bggkvtkp (Excedrin Migraine), 2 TABS PO DAILY PRN for Migraine Pdyiidzncx-Koxyqvl-Tpwtrcxl (Butal/Asa/Caff), 1-2 CAP PO Q4H PRN for Migraine Clonazepam (Clonazepam), 1 MG PO BID PRN for Anxiety Oxycodone/Acetaminophen 5MG/325MG (Oxycodone/Acetaminophen 5MG/325MG), 1-2 TABS PO Q6H PRN for Migraine Promethazine (Phenergan Suppository), 25 MG [place] Q4H PRN for Nausea Promethazine Hcl (Phenergan), 25 MG PO Q4H PRN for Nausea Sumatriptan Succinate (Imitrex), 100 MG PO UD PRN for Migraine Allergies Coded Allergies: Cefuroxime (Verified Allergy, Intermediate, mouth ulcers, 11/20/16) Sulfa Drugs (Verified Allergy, Mild, 11/20/16) Ondansetron (Verified Allergy, Unknown, SWELLING, 11/20/16) Penicillins (Verified Allergy, Unknown, UNKN, 11/20/16) Tramadol (Verified Adverse Reaction, Unknown, MIGRAINE, 11/20/16) PT TOOK TRAMADOL THIS MORNING, THINKS MIGRAINE MIGHT BE FROM THAT Vital Signs Date Time Temp Pulse Resp B/P Pulse Ox O2 Delivery O2 Flow Rate FiO2 11/20/16 15:41 97 18 137/76 97 Room Air 11/20/16 14:38 36.8 103 18 134/88 95 Room Air Medications Administered Medications (Trade) Dose Ordered Sig/Vickey Route Start Time Stop Time Status Last Admin Dose Admin Morphine Sulfate (MoRPHine SULFATE INJ) 10 mg NOW STAT IM 11/20/16 15:09 11/20/16 15:11 DC 11/20/16 15:24 10 MG Ketorolac Tromethamine (Toradol Inj) 60 mg NOW STAT IM 11/20/16 15:09 11/20/16 15:11 DC 11/20/16 15:25 60 MG Promethazine HCl (Phenergan Inj) 25 mg NOW STAT IM 11/20/16 15:09 11/20/16 15:11 DC 11/20/16 15:24 25 MG Departure Information Impression Primary Impression: Migraine Dispostion Home / Self-Care Condition GOOD Referrals Andrew Bee MD (PCP) Patient Instructions My [facility] Additional Instructions You have been treated in the Emergency Department for a Headache. You have received pain medicine in the emergency department which impairs your ability to operate a vehicle. It is illegal for you to drive after receiving these medicines. You should schedule a follow-up appointment in 2-3 days with your Primary Care Provider or established Neurologist for further evaluation and treatment of your Headache. Return to the Emergency Department if your current symptoms worsen despite treatment course outlined above, or if you develop any of the following symptoms : intractable pain despite aforementioned treatment course, visual disturbances , loss of vision, unilateral weakness or facial drooping, slurring of speech, loss of coordination, or loss of consciousness. Problem Qualifiers Primary Impression: Migraine Migraine type: without aura Status migrainosus presence: without status migrainosus Intractability: not intractable Qualified Codes: G43.009 - Migraine without aura, not intractable, without status migrainosus
[2016-11-20 15:41] VITALS: BP 137/76; PULSE 97; O2SAT 97
[2017-03-12] MEDS ORDERED: PROM25TA9 PO (09:03)
[2017-03-12] MEDS ORDERED: ASPI-390 PO (10:58)
[2017-03-12] MEDS ORDERED: IMT100 PO (12:31)
[2017-03-12] MEDS ORDERED: CETI10TA84 PO (15:34)
[2017-03-12] MEDS ORDERED: CHOL2000 PO (15:57)
[2017-03-12] MEDS ORDERED: TURM1CAP4 PO (16:03)
[2017-03-12] MEDS ORDERED: BUTACAP7 PO (16:07)
[2017-03-12] MEDS ORDERED: KLN1X PO (16:07)
[2017-03-12] MEDS ORDERED: PRENTAB26 PO (17:20)
== END 2016-11-20 15:42 | disposition home or self-care (01) ==
LOC: C.EDB 14:35 → C.EDD 15:42
DX: G43.009 Migraine without aura, not intractable, without status migrainosus (principal); Z85.820 Personal history of malignant melanoma of skin; E66.9 Obesity, unspecified; E88.81 Metabolic syndrome and other insulin resistance

== ENCOUNTER 2016-12-02 16:40 | Emergency (ER) | payer BC ==
[~2016-12-02] VITALS: Ht 170.2 cm; Wt 149.2 kg
[~2016-12-02 16:40] MED LIST changes: -ASTN NAE; -BENZ100C84 PO; -DOXY100C2 PO; -GUAISYP4 PO; -LEVO1TAB33 PO
[2016-12-02 16:56] VITALS: TEMP 36.7; Ht 170.2 cm; Wt 149.2 kg
[2016-12-02] MEDS ORDERED: PROMETHAZINE HCL INJ 25 MG/ML 1 ML VIAL IM STA (17:32)
[2016-12-02] MEDS ORDERED: MoRPHine SULFATE 10 MG/ML CARP/VIAL IM STA (17:32)
[2016-12-02] MEDS ORDERED: KETOROLAC TROMETHAMINE 60 MG/2 ML VIAL IM STA (17:32)
[2016-12-02 18:27] VITALS: BP 125/82; PULSE 78; O2SAT 97
--- NOTE | 2016-12-03 00:16 | EMERGENCY ROOM VISIT NOTE ---
History First contact with patient: 17:26 Chief Complaint: HEADACHE Stated Complaint: SEVERE MIGRAINE FOR 3DAYS History of Present Illness The patient is a 31 year old female who presents to the Emergency Room with complaints of a migraine headache for the past 3 days. The patient reports a history of migraines, and reports that this pain is similar with a throbbing left frontal headache. She is also nauseated without vomiting. She reports photophobia and phonophobia. She reports that this headache is similar to all prior migraines, and not the worse headache of her life. She follows with Dr. Hinkle, neurologist. Her last visit with him was approximately 2 months ago. Appointment scheduled for February. The patient is currently not treated with any prophylactic medications. She did not have any relief with beta blockers in the past. When the patient has a migraine, she treats herself with Excedrin migraine, Imitrex pills, Phenergan and Fiorinal. The patient reports that when these medications do not help her pain, she has to come to the emergency department. She denies any recent upper respiratory infections, headache injury or risk of carbon monoxide poisoning. She also has not noticed any unusual neurologic symptoms. She rates her pain a 7 out of 10. Review of Systems 10 system review was performed and was negative except for pertinent positives and negatives as indicated in history of present illness Past Medical/Surgical History Medical Problems: (1) Migraine Unspecified W/O Intractable Migraine (2) Obesity, Nos (3) Tonsillectomy Family History Diabetes mellitus Heart disease Social History Smoking Status: Never Smoker Alcohol Use: none Drug Use: none Marital Status: Housing Status: lives with family Occupation Status: employed Current/Historical Medications Scheduled Cholecalciferol (Vitamin D3), 2,000 UNITS PO DAILY Multivit/Min/Iron/Fol Ac/Pren ( Vitamin), 1 TAB PO DAILY Turmeric (Curcuma Longa) (Turmeric), 1,000 MG PO BID Scheduled PRN Zopuswn-Lksicygyaxtxs-Dznmhvlr (Excedrin Migraine), 2 TABS PO DAILY PRN for Migraine Hdmcgyrmvq-Sgbgeaw-Wukgjmqi (Butal/Asa/Caff), 1-2 CAP PO Q4H PRN for Migraine Clonazepam (Clonazepam), 1 MG PO BID PRN for Anxiety Oxycodone/Acetaminophen 5MG/325MG (Oxycodone/Acetaminophen 5MG/325MG), 1-2 TABS PO Q6H PRN for Migraine Promethazine (Phenergan Suppository), 25 MG [place] Q4H PRN for Nausea Promethazine Hcl (Phenergan), 25 MG PO Q4H PRN for Nausea Sumatriptan Succinate (Imitrex), 100 MG PO UD PRN for Migraine Allergies Coded Allergies: Cefuroxime (Verified Allergy, Intermediate, mouth ulcers, 12/02/16) Sulfa Drugs (Verified Allergy, Mild, 12/02/16) Ondansetron (Verified Allergy, Unknown, SWELLING, 12/02/16) Penicillins (Verified Allergy, Unknown, UNKN, 12/02/16) Tramadol (Verified Adverse Reaction, Unknown, MIGRAINE, 12/02/16) PT TOOK TRAMADOL THIS MORNING, THINKS MIGRAINE MIGHT BE FROM THAT Physical Exam Vital Signs Date Time Temp Pulse Resp B/P Pulse Ox O2 Delivery O2 Flow Rate FiO2 12/02/16 18:27 78 18 125/82 97 Room Air 12/02/16 16:56 36.7 83 18 145/105 96 Room Air Pain Rating (0-10): 5.0 Physical Exam CONSTITUTIONAL: Healthy and well nourished. Alert and oriented X 3 with positive affect. Patient is resting in a darkened room. HEENT: Normocephalic, atraumatic. Pupils equal, round and reactive. The patient is photophobic, precluding funduscopic exam. NECK: Full active range of motion without discomfort. No JVD or carotid bruits. No nuchal rigidity. RESPIRATORY: Clear to auscultation bilaterally with no wheezing, crackles, rhonchi or stridor. CARDIOVASCULAR: Regular rate and rhythm with no murmurs, rubs or gallops. MUSCULOSKELETAL: Full range of motion of all joints without discomfort. INTEGUMENTARY: No rash or other significant dermatologic conditions noted. NEUROLOGIC: Cranial nerves II-XII grossly intact. No focal neurologic deficits noted. Normal finger to nose test. Negative pronator drift. No ataxia with ambulation. Medical Decision & Procedures Medications Administered Medications (Trade) Dose Ordered Sig/Vickey Route Start Time Stop Time Status Last Admin Dose Admin Morphine Sulfate (MoRPHine SULFATE INJ) 10 mg NOW STAT IM 12/02/16 17:32 12/02/16 17:34 DC 12/02/16 18:26 10 MG Promethazine HCl (Phenergan Inj) 50 mg NOW STAT IM 12/02/16 17:32 12/02/16 17:34 DC 12/02/16 18:25 50 MG Ketorolac Tromethamine (Toradol Inj) 60 mg NOW STAT IM 12/02/16 17:32 12/02/16 17:34 DC 12/02/16 18:25 60 MG ED Course Patient history and physical exam were performed. Nurse's notes were reviewed. Vital signs were reviewed, showing a blood pressure 145/105. Review medical records also shows that the patient is currently on a treatment plan of 2 narcotic injections monthly because of her prior history of chronic migraines. According to her treatment plan, the patient was administered morphine 10 mg, Phenergan 50 mg and Toradol 60 mg IM. The patient rated her pain a 5 out of 10 at the time of discharge. The patient was instructed to follow-up with Dr. Hinkle as needed for further migraine management. She was instructed to rest and remain well-hydrated. Return to the emergency department for any worsening headache. The patient was happy with plan of care, and discharged with her . The patient was also advised of her elevated blood pressure. She was instructed to keep a blood pressure journal twice daily, and follow up with her PCP for further recheck. Medical Decision Patient presents to the emergency department with complaint of a migraine headache that is similar to prior migrainous events. Given history and physical exam findings, I do not suspect intracranial bleed, abscess, meningitis , TIA/CVA, thromboembolic event or carbon monoxide poisoning. Impression Primary Impression: Migraine Departure Information Dispostion Home / Self-Care Condition FAIR Referrals Andrew Bee MD (PCP) Forms HOME CARE DOCUMENTATION FORM, IMPORTANT VISIT INFORMATION Patient Instructions My [facility] Additional Instructions Follow-up with Dr. Hinkle as needed for further migraine management. Rest and remain well-hydrated. Return for significantly worsening symptoms, developing fever or other concerning neurologic symptoms. Problem Qualifiers Primary Impression: Migraine Migraine type: without aura Status migrainosus presence: without status migrainosus Intractability: not intractable Qualified Codes: G43.009 - Migraine without aura, not intractable, without status migrainosus
[2017-03-12] MEDS ORDERED: PROM25TA9 PO (09:03)
[2017-03-12] MEDS ORDERED: ASPI-390 PO (10:58)
[2017-03-12] MEDS ORDERED: IMT100 PO (12:31)
[2017-03-12] MEDS ORDERED: CETI10TA84 PO (15:34)
[2017-03-12] MEDS ORDERED: CHOL2000 PO (15:57)
[2017-03-12] MEDS ORDERED: TURM1CAP4 PO (16:03)
[2017-03-12] MEDS ORDERED: KLN1X PO (16:07)
[2017-03-12] MEDS ORDERED: BUTACAP7 PO (16:07)
[2017-03-12] MEDS ORDERED: PRENTAB26 PO (17:20)
== END 2016-12-02 18:46 | disposition home or self-care (01) ==
LOC: C.EDB 16:41 → C.EDD 18:46
DX: G43.909 Migraine, unspecified, not intractable, without status migrainosus (principal); Z79.82 Long term (current) use of aspirin; Z79.899 Other long term (current) drug therapy; Z88.0 Allergy status to penicillin; Z88.2 Allergy status to sulfonamides; Z88.8 Allergy status to other drugs, medicaments and biological substances; Z83.3 Family history of diabetes mellitus; Z82.49 Family history of ischemic heart disease and other diseases of the circulatory system

== ENCOUNTER 2016-12-12 22:48 | Emergency (ER) | payer BC ==
[~2016-12-12] VITALS: Ht 170.2 cm; Wt 152.7 kg
[2016-12-12 22:50] VITALS: BP 157/99; PULSE 87; TEMP 36.4; O2SAT 100; Ht 170.2 cm; Wt 152.7 kg
[2016-12-12] MEDS ORDERED: MoRPHine SULFATE 10 MG/ML CARP/VIAL IM STA (23:09)
[2016-12-12] MEDS ORDERED: PROMETHAZINE HCL INJ 25 MG/ML 1 ML VIAL IM STA (23:09)
[2016-12-12] MEDS ORDERED: KETOROLAC TROMETHAMINE 60 MG/2 ML VIAL IM STA (23:09)
--- NOTE | 2016-12-12 23:13 | EMERGENCY ROOM VISIT NOTE ---
History Report prepared by [place]on: Jeronimo Anderson Under the Supervision of: Dr. Wang Redmond M.D. First contact with patient: 23:03 Chief Complaint: HEADACHE Stated Complaint: SEVERE MIGRAINE AND NAUSEA History of Present Illness The patient is a 31 year old female who presents to the Emergency Room with complaints of a persistent migraine headache that started yesterday. The pain is localized to the front left side of her head, which is typical of migraines for her. She also noticed an aura with the migraine yesterday, which is unusual for her. The patient is nauseous, for which she had Phenergan at 1500 today. She also notes some photophobia. She denies any recent falls or trauma. The patient denies loss of vision, neck stiffness, chest pain, shortness of breath, back pain, vomiting, abdominal pain, incontinence of bowel or bladder, or weakness of the extremities. Source of History: patient Onset: yesterday Position: head Quality: other (migraine) Timing: other (persistent) Associated Symptoms: + nausea, No SOB, No abdominal pain, No back pain, No chest pain, No neck pain, No urinary symptoms, No vomiting, No weakness Review of Systems See HPI for pertinent positives & negatives. A total of 10 systems reviewed and were otherwise negative. Past Medical & Surgical Medical Problems: (1) Migraine Unspecified W/O Intractable Migraine (2) Obesity, Nos (3) Tonsillectomy Family History Diabetes mellitus Heart disease Social History Smoking Status: Never Smoker Alcohol Use: none Drug Use: none Marital Status: Housing Status: lives with family Occupation Status: employed Current/Historical Medications Scheduled Cholecalciferol (Vitamin D3), 2,000 UNITS PO DAILY Multivit/Min/Iron/Fol Ac/Pren ( Vitamin), 1 TAB PO DAILY Turmeric (Curcuma Longa) (Turmeric), 1,000 MG PO BID Scheduled PRN Hkrulvj-Qtkmilkccealu-Hbkynlhc (Excedrin Migraine), 2 TABS PO DAILY PRN for Migraine Wavvfkrcdo-Lqvmzwf-Rybswrkl (Butal/Asa/Caff), 1-2 CAP PO Q4H PRN for Migraine Clonazepam (Clonazepam), 1 MG PO BID PRN for Anxiety Oxycodone/Acetaminophen 5MG/325MG (Oxycodone/Acetaminophen 5MG/325MG), 1-2 TABS PO Q6H PRN for Migraine Promethazine Hcl (Phenergan), 25 MG PO Q4H PRN for Nausea Sumatriptan Succinate (Imitrex), 100 MG PO UD PRN for Migraine Allergies Coded Allergies: Cefuroxime (Verified Allergy, Intermediate, mouth ulcers, 12/12/16) Sulfa Drugs (Verified Allergy, Mild, 12/12/16) Ondansetron (Verified Allergy, Unknown, SWELLING, 12/12/16) Penicillins (Verified Allergy, Unknown, UNKN, 12/12/16) Tramadol (Verified Adverse Reaction, Unknown, MIGRAINE, 12/12/16) PT TOOK TRAMADOL THIS MORNING, THINKS MIGRAINE MIGHT BE FROM THAT Physical Exam Vital Signs Date Time Temp Pulse Resp B/P Pulse Ox O2 Delivery O2 Flow Rate FiO2 12/12/16 22:50 36.4 87 18 157/99 100 Room Air Physical Exam GENERAL: Patient is well appearing and in mild distress. HEAD: No acute trauma, normocephalic atraumatic ENT: Mucous membranes moist, no nasal congestion. EYES: Equal/Reactive Bilaterally, No scleral icterus, Normal ROM NECK: No nuchal rigidity, no meningismus, trachea is midline, full ROM LUNGS: No dyspnea. Clear to auscultation and equal bilaterally. No wheeze, no rhonchi. HEART: Regular rate and rhythm. No murmurs, rubs, gallops appreciated. ABDOMEN: Soft, nontender, bowel sounds positive, no masses appreciated, no peritonitis. BACK: No midline tenderness, no CVA tenderness EXTREMITIES: Normal motion all extremities, no cyanosis, no edema. NEUROLOGIC: Awake, Alert, Oriented, no acute motor or sensory deficits, no focal weakness, cranial nerves grossly intact. SKIN: No rash, no jaundice, no diaphoresis. Medical Decision & Procedures Medications Administered Medications (Trade) Dose Ordered Sig/Vickey Route Start Time Stop Time Status Last Admin Dose Admin Morphine Sulfate (MoRPHine SULFATE INJ) 10 mg NOW STAT IM 12/12/16 23:09 12/12/16 23:11 DC 12/12/16 23:09 10 MG Promethazine HCl (Phenergan Inj) 50 mg NOW STAT IM 12/12/16 23:09 12/12/16 23:11 DC 12/12/16 23:09 50 MG Ketorolac Tromethamine (Toradol Inj) 60 mg NOW STAT IM 12/12/16 23:09 3/11/17 23:11 DC 12/12/16 23:23 60 MG ED Course 2306: The patient was evaluated in room B8. A complete history and physical exam was performed. 2309: Toradol 60 mg IM, Phenergan 50 mg IM, Morphine Sulfate 10 mg IM. 2315: Discussed the discharge instructions with the patient. She verbalized understanding and agreement. The patient is ready for discharge. Medical Decision Differential: Headache, Migraine, Cluster Headache, Seizure, Meningitis, Sinusitis, CO exposure, ICH/SAH, Infectious, Tumor, Sinus Thrombosis, Arterial Dissection, amongst other pathologies entertained. 31 yr old female with long history of migraines arrives with her typical migraine symptoms. She has no meningitis symptoms, no evidence ich, dissection , thrombosis. Looks well and in no distress. Regularly dose well with above regimen. Continue to follow with her Neurologist. Impression Primary Impression: Headache Additional Impression: Migraine Scribe Attestation The scribe's documentation has been prepared under my direction and personally reviewed by me in its entirety. I confirm that the note above accurately reflects all work, treatment, procedures, and medical decision making performed by me. Departure Information Dispostion Home / Self-Care Referrals Andrew Bee MD (PCP) Forms HOME CARE DOCUMENTATION FORM, IMPORTANT VISIT INFORMATION Patient Instructions ED Headache Migraine, My [facility] Problem Qualifiers Primary Impression: Headache Headache type: unspecified Headache chronicity pattern: acute headache Intractability: not intractable Qualified Codes: R51 - Headache Additional Impression: Migraine Migraine type: with aura Status migrainosus presence: without status migrainosus Intractability: not intractable Qualified Codes: G43.109 - Migraine with aura, not intractable, without status migrainosus
[2017-03-12] MEDS ORDERED: PROM25TA9 PO (09:03)
[2017-03-12] MEDS ORDERED: ASPI-390 PO (10:58)
[2017-03-12] MEDS ORDERED: IMT100 PO (12:31)
[2017-03-12] MEDS ORDERED: CETI10TA84 PO (15:34)
[2017-03-12] MEDS ORDERED: CHOL2000 PO (15:57)
[2017-03-12] MEDS ORDERED: TURM1CAP4 PO (16:03)
[2017-03-12] MEDS ORDERED: BUTACAP7 PO (16:07)
[2017-03-12] MEDS ORDERED: KLN1X PO (16:07)
[2017-03-12] MEDS ORDERED: PRENTAB26 PO (17:20)
== END 2016-12-12 23:29 | disposition home or self-care (01) ==
LOC: C.EDB 22:49
DX: R51 Headache (principal); G43.109 Migraine with aura, not intractable, without status migrainosus; Z83.3 Family history of diabetes mellitus; Z82.49 Family history of ischemic heart disease and other diseases of the circulatory system

== ENCOUNTER 2017-01-02 08:32 | Emergency (ER) | payer BC ==
[~2017-01-02] VITALS: Ht 170.2 cm; Wt 148.5 kg
[2017-01-02 08:35] VITALS: TEMP 36.8; Ht 170.2 cm; Wt 148.5 kg
[2017-01-02] MEDS ORDERED: KETOROLAC TROMETHAMINE 60 MG/2 ML VIAL IM STA (08:56)
[2017-01-02] MEDS ORDERED: PROMETHAZINE HCL INJ 25 MG/ML 1 ML VIAL IM STA (08:56)
[2017-01-02] MEDS ORDERED: MoRPHine SULFATE 10 MG/ML CARP/VIAL IM STA (08:56)
--- NOTE | 2017-01-02 09:00 | EMERGENCY ROOM VISIT NOTE ---
History Report prepared by Hipolitoibelana: Yumiko Thompson Under the Supervision of: Dr. Ingrid Castanon M.D. First contact with patient: 08:41 Chief Complaint: HEADACHE Stated Complaint: MIGRAINE X 4 DAYS History of Present Illness The patient is a 31 year old female who presents to the Emergency Room with complaints of a persistent headache for the past 4 days. She rates her pain as a 7/10. She admits to a history of migraine headaches and states her current pain feels like her typical migraine. Light worsens her discomfort. She has tried taking Imitrex, Phenergan, Percocet and Excedrin, but they have provided no relief. She denies any recent fevers or vomiting. 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 A total of 10 systems reviewed and were otherwise negative. Past Medical & Surgical Medical Problems: (1) Migraine Unspecified W/O Intractable Migraine (2) Obesity, Nos (3) Tonsillectomy Family History Diabetes mellitus Heart disease Social History Smoking Status: Never Smoker Alcohol Use: none Drug Use: none Marital Status: Housing Status: lives with family Occupation Status: employed Current/Historical Medications Scheduled Cholecalciferol (Vitamin D3), 2,000 UNITS PO DAILY Multivit/Min/Iron/Fol Ac/Pren ( Vitamin), 1 TAB PO DAILY Turmeric (Curcuma Longa) (Turmeric), 1,000 MG PO BID Scheduled PRN Gyadyoc-Iafgsgjcwcuzv-Uiurfglw (Excedrin Migraine), 2 TABS PO DAILY PRN for Migraine Kowbvsnsoo-Uoazryk-Jarwapvu (Butal/Asa/Caff), 1-2 CAP PO Q4H PRN for Migraine Clonazepam (Clonazepam), 1 MG PO BID PRN for Anxiety Oxycodone/Acetaminophen 5MG/325MG (Oxycodone/Acetaminophen 5MG/325MG), 1-2 TABS PO Q6H PRN for Migraine Promethazine Hcl (Phenergan), 25 MG PO Q4H PRN for Nausea Sumatriptan Succinate (Imitrex), 100 MG PO UD PRN for Migraine Allergies Coded Allergies: Cefuroxime (Verified Allergy, Intermediate, mouth ulcers, 01/02/17) Sulfa Drugs (Verified Allergy, Mild, 01/02/17) Ondansetron (Verified Allergy, Unknown, SWELLING, 01/02/17) Penicillins (Verified Allergy, Unknown, UNKN, 01/02/17) Tramadol (Verified Adverse Reaction, Unknown, MIGRAINE, 01/02/17) PT TOOK TRAMADOL THIS MORNING, THINKS MIGRAINE MIGHT BE FROM THAT Physical Exam Vital Signs Date Time Temp Pulse Resp B/P Pulse Ox O2 Delivery O2 Flow Rate FiO2 01/02/17 09:55 70 20 124/71 99 Room Air 01/02/17 08:35 36.8 87 18 140/110 95 Room Air Physical Exam Vital signs reviewed. General: Well-appearing obese 31 year old female, in no significant distress. HEENT: No scleral icterus, PERRLA, neck supple. Atraumatic. No meningeal signs. Cardiovascular: Regular rate and rhythm, no extra sounds. Pulmonary: Clear to auscultation bilaterally, normal work of breathing. Abdomen: Soft, nontender, nondistended, positive bowel sounds. Musculoskeletal: Atraumatic, no peripheral edema. Neurologic: Patient awake alert and oriented x 3, full strength in all 4 extremities. Cranial nerves 2 through 12 grossly intact. Skin: Warm, dry, no rash Medical Decision & Procedures Medications Administered Medications (Trade) Dose Ordered Sig/Vickey Route Start Time Stop Time Status Last Admin Dose Admin Morphine Sulfate (MoRPHine SULFATE INJ) 10 mg NOW STAT IM 01/02/17 08:56 01/02/17 08:58 DC 01/02/17 09:15 10 MG Promethazine HCl (Phenergan Inj) 25 mg NOW STAT IM 01/02/17 08:56 01/02/17 08:58 DC 01/02/17 09:15 25 MG Ketorolac Tromethamine (Toradol Inj) 60 mg NOW STAT IM 01/02/17 08:56 01/02/17 08:58 DC 01/02/17 09:14 60 MG ED Course 0855: Past medical records reviewed. The patient was evaluated in room A4B. A complete history and physical examination was performed. 0856: Toradol 60 mg IM, Phenergan 25 mg IM, Morphine Sulfate 10 mg IM. 0955: I reevaluated the patient. She is feeling much better. I discussed her results and discharge instructions and she verbalized complete understanding and agreement. Medical Decision DDx: Intracranial hemorrhage, intracranial mass, migraine headache, tension headache , sinusitis, meningitis This patient was evaluated and appeared to be in no significant distress. The patient states this is similar to her previous migraines. She was treated per her pain protocol with IM morphine and Phenergan. She was also given 60 mg of IM Toradol. Patient had improvement in her symptoms. She was discharged in care of her . She will return to the ER for worsening of symptoms or any medical concerns. Impression Primary Impression: Headache Scribe Attestation The scribe's documentation has been prepared under my direction and personally reviewed by me in its entirety. I confirm that the note above accurately reflects all work, treatment, procedures, and medical decision making performed by me. Departure Information Dispostion Home / Self-Care Referrals Andrew Bee MD (PCP) Patient Instructions My [facility] Additional Instructions Diagnosis: Headache Please continue medications as prescribed. Rest in a quiet dark room Follow-up with your physician this week for reevaluation. Return to the ER for worsening of symptoms or any medical concerns.
[2017-01-02 09:55] VITALS: BP 124/71; PULSE 70; O2SAT 99
[2017-03-12] MEDS ORDERED: PROM25TA9 PO (09:03)
[2017-03-12] MEDS ORDERED: ASPI-390 PO (10:58)
[2017-03-12] MEDS ORDERED: IMT100 PO (12:31)
[2017-03-12] MEDS ORDERED: CETI10TA84 PO (15:34)
[2017-03-12] MEDS ORDERED: CHOL2000 PO (15:57)
[2017-03-12] MEDS ORDERED: TURM1CAP4 PO (16:03)
[2017-03-12] MEDS ORDERED: BUTACAP7 PO (16:07)
[2017-03-12] MEDS ORDERED: KLN1X PO (16:07)
[2017-03-12] MEDS ORDERED: PRENTAB26 PO (17:20)
== END 2017-01-02 10:03 | disposition home or self-care (01) ==
LOC: C.EDB 08:34 → C.EDA 10:03
DX: R51 Headache (principal); Z79.82 Long term (current) use of aspirin; Z79.899 Other long term (current) drug therapy; Z88.0 Allergy status to penicillin; Z88.2 Allergy status to sulfonamides; Z88.8 Allergy status to other drugs, medicaments and biological substances; Z88.3 Allergy status to other anti-infective agents; Z82.49 Family history of ischemic heart disease and other diseases of the circulatory system

== ENCOUNTER 2017-01-15 14:22 | Emergency (ER) | payer BC ==
[~2017-01-15] VITALS: Ht 170.2 cm; Wt 150.5 kg
[2017-01-15 14:25] VITALS: TEMP 36.6; Ht 170.2 cm; Wt 150.5 kg
[2017-01-15] MEDS ORDERED: PROMETHAZINE HCL INJ 25 MG/ML 1 ML VIAL IM STA (14:48)
[2017-01-15] MEDS ORDERED: KETOROLAC TROMETHAMINE 60 MG/2 ML VIAL IM STA (14:48)
[2017-01-15] MEDS ORDERED: MoRPHine SULFATE 10 MG/ML CARP/VIAL IM STA (14:48)
--- NOTE | 2017-01-15 14:53 | EMERGENCY ROOM VISIT NOTE ---
ED Visit Note First contact with patient: 14:38 CHIEF COMPLAINT: Migraine headache HISTORY OF PRESENT ILLNESS: This 31-year-old female patient presented to the emergency department with a gradual onset of a severe generalized headache that started wednesday. There has been associated photophobia, phonophobia, nausea and vomiting. The patient denies fever or chills recently, and there is no weakness or numbness of the extremities. There is no difficulty with speech or vision. No trauma to the head and no neck pain. The pain is severe, constant, and it is slowly increasing in severity. The patient rates the pain as sharp and 8/10. The patient has taken her usual medications. This is not the worst headache of the life and is similar to previous migraines. Previous imaging studies of the brain (CT scans) have been normal. REVIEW OF SYSTEMS: An 8 system review of systems was completed with positives and pertinent negatives listed in the HPI. ALLERGIES: See nursing notes MEDICATIONS: See nursing notes PMH: Unchanged from previous SOCIAL HISTORY: The patient is . She lives locally PHYSICAL EXAM: Vital Signs: Reviewed Nurse's notes, vital signs stable. MENTAL STATUS: Alert, oriented, and coherent. In great distress from the headache. NECK : Supple, no nuchal rigidity, nontender, no lymphadenopathy. HEART: Regular rhythm and normal rate without murmurs, ectopy, gallops, or rubs. SKIN: Normal. NEUROLOGICAL: Pupils are round, equal and react to light. The optic fundi are normal and the discs are flat. EOMs are full and there is no nystagmus. The patient moves all extremities well and the gait is normal. EMERGENCY DEPARTMENT COURSE: I examined the patient. The patient is well-known to the emergency department. She is on a 2 shot per month treatment protocol. This is her second visit for the month. The patient was given 10 mg IM morphine , 50 mg IM Phenergan and 60 mg IM Toradol with relief of their pain. The differential diagnosis includes acute intracranial bleed, meningitis, encephalitis, mass or mass effect, sinusitis, infection, tumor, headache, temporal arteritis and carbon monoxide exposure, and migraine. The patient was discharged home in stable condition with her significant other driving. DIAGNOSIS: Migraine headache DISCHARGE INSTRUCTIONS & TREATMENT: Rest at home, resume prescription medications. See your own doctor in follow-up. Problem List Medical Problems: (1) Migraine Unspecified W/O Intractable Migraine Status: Chronic (2) Obesity, Nos Status: Chronic (3) Tonsillectomy Status: Resolved Current/Historical Medications Scheduled Cetirizine (Zyrtec), 10 MG PO DAILY Cholecalciferol (Vitamin D3), 2,000 INTER.UNIT PO DAILY Multivit/Min/Iron/Fol Ac/Pren ( Vitamin), 1 TAB PO DAILY Turmeric (Curcuma Longa) (Turmeric), 1,000 MG PO BID Scheduled PRN Epcqtbs-Ysafogbuoqsum-Epnjlbvd (Excedrin Migraine), 2 TABS PO DAILY PRN for Migraine Hqyynngegj-Cinuuqq-Fqixtytc (Butal/Asa/Caff), 1-2 CAP PO Q4H PRN for Migraine Clonazepam (Clonazepam), 1 MG PO BID PRN for Anxiety Oxycodone/Acetaminophen 5MG/325MG (Oxycodone/Acetaminophen 5MG/325MG), 1-2 TABS PO Q6H PRN for Migraine Promethazine Hcl (Phenergan), 25 MG PO Q4H PRN for Nausea Sumatriptan Succinate (Imitrex), 100 MG PO UD PRN for Migraine Allergies Coded Allergies: Cefuroxime (Verified Allergy, Intermediate, mouth ulcers, 01/02/17) Sulfa Drugs (Verified Allergy, Mild, 01/02/17) Ondansetron (Verified Allergy, Unknown, SWELLING, 01/02/17) Penicillins (Verified Allergy, Unknown, UNKN, 01/02/17) Tramadol (Verified Adverse Reaction, Unknown, MIGRAINE, 01/02/17) PT TOOK TRAMADOL THIS MORNING, THINKS MIGRAINE MIGHT BE FROM THAT Vital Signs Date Time Temp Pulse Resp B/P Pulse Ox O2 Delivery O2 Flow Rate FiO2 01/15/17 15:26 78 18 155/89 98 01/15/17 14:25 36.6 99 18 169/115 96 Room Air Medications Administered Medications (Trade) Dose Ordered Sig/Vickey Route Start Time Stop Time Status Last Admin Dose Admin Morphine Sulfate (MoRPHine SULFATE INJ) 10 mg NOW STAT IM 01/15/17 14:48 01/15/17 14:50 DC 01/15/17 15:00 10 MG Promethazine HCl (Phenergan Inj) 50 mg NOW STAT IM 01/15/17 14:48 01/15/17 14:50 DC 01/15/17 15:00 50 MG Ketorolac Tromethamine (Toradol Inj) 60 mg NOW STAT IM 01/15/17 14:48 01/15/17 14:50 DC 01/15/17 15:00 60 MG Departure Information Impression Primary Impression: Migraine Dispostion Home / Self-Care Condition GOOD Referrals Andrew Bee MD (PCP) Patient Instructions [facility]
[2017-01-15 15:26] VITALS: BP 155/89; PULSE 78; O2SAT 98
[2017-03-12] MEDS ORDERED: PROM25TA9 PO (09:03)
[2017-03-12] MEDS ORDERED: ASPI-390 PO (10:58)
[2017-03-12] MEDS ORDERED: IMT100 PO (12:31)
[2017-03-12] MEDS ORDERED: CETI10TA84 PO (15:34)
[2017-03-12] MEDS ORDERED: CHOL2000 PO (15:57)
[2017-03-12] MEDS ORDERED: TURM1CAP4 PO (16:03)
[2017-03-12] MEDS ORDERED: BUTACAP7 PO (16:07)
[2017-03-12] MEDS ORDERED: KLN1X PO (16:07)
[2017-03-12] MEDS ORDERED: PRENTAB26 PO (17:20)
== END 2017-01-15 15:28 | disposition home or self-care (01) ==
LOC: C.EDB 14:23 → C.EDD 15:28
DX: G40.909 Epilepsy, unspecified, not intractable, without status epilepticus (principal); Z79.899 Other long term (current) drug therapy; Z88.0 Allergy status to penicillin; Z88.2 Allergy status to sulfonamides; Z88.8 Allergy status to other drugs, medicaments and biological substances

== ENCOUNTER 2017-02-12 19:03 | Emergency (ER) | payer BC ==
[~2017-02-12] VITALS: Ht 170.2 cm; Wt 153.8 kg
[2017-02-12 19:05] VITALS: TEMP 36.4; Ht 170.2 cm; Wt 153.8 kg
[2017-02-12] MEDS ORDERED: PROMETHAZINE HCL INJ 25 MG/ML 1 ML VIAL IM STA (19:23)
[2017-02-12] MEDS ORDERED: KETOROLAC TROMETHAMINE 60 MG/2 ML VIAL IM STA (19:23)
[2017-02-12] MEDS ORDERED: MoRPHine SULFATE 10 MG/ML CARP/VIAL IM STA (19:23)
--- NOTE | 2017-02-12 19:49 | EMERGENCY ROOM VISIT NOTE ---
ED Visit Note First contact with patient: 19:11 CHIEF COMPLAINT: Migraine headache HISTORY OF PRESENT ILLNESS: This 31-year-old female patient presented to the emergency department ambulatory with a gradual onset of a severe generalized headache that started yesterday. The patient states the migraine is similar to their typical migraines. There has been associated photophobia, phonophobia, and nausea. The patient denies fever or chills recently, and there is no weakness or numbness of the extremities. There is no difficulty with speech or vision. No trauma to the head and no neck pain. The pain is severe, constant, and it is slowly increasing in severity. The patient rates the pain as throbbing and pinching and 7/10. The patient has taken Excedrin, Fiorinal, Imitrex, Phenergan and Percocet without relief. This is not the worst headache of the life and is similar to previous migraines. Previous imaging studies of the brain have been normal. The patient sees Dr. Hinkle and has a follow-up appointment in a few weeks. REVIEW OF SYSTEMS: A review of systems was performed with positives and pertinent negatives listed in the history of present illness. All other systems were reviewed and are negative. ALLERGIES: Cefuroxime, Zofran, penicillins, sulfa drugs, tramadol MEDICATIONS: See med list PMH: Migraine headaches SOCIAL HISTORY: The patient lives locally with family. Nonsmoker. PHYSICAL EXAM: Vital Signs: Reviewed Nurse's notes, vital signs stable. GENERAL : This is a 31-year-old female, who appears in pain, but non toxic in appearance and in no acute distress. MENTAL STATUS: Alert, oriented, and coherent. HEENT: Normocephalic. PERRLA. EOMI. Nares patent without nuchal rigidity. Tympanic membranes pearly silva without erythema or effusion bilaterally. Mucous membranes moist. NECK: Supple, no nuchal rigidity, nontender, no lymphadenopathy. HEART: Regular rhythm and normal rate without murmurs, ectopy, gallops, or rubs. LUNGS: Clear to auscultation bilaterally without wheezes, rales or rhonchi. No dullness to percussion. No accessory muscle use. No retractions. SKIN: Normal. NEUROLOGICAL: Pupils are round, equal and react to light. The optic fundi are normal and the discs are flat. The patient moves all extremities well and the gait is normal. EMERGENCY DEPARTMENT COURSE: I examined the patient. The patient is on a 2 narcotic injection per month treatment plan for their migraines. The patient was given 10 mg morphine, 50 mg Phenergan and 60 mg Toradol intramuscularly per their usual protocol. The differential diagnosis includes acute intracranial bleed, meningitis, encephalitis, mass or mass effect, sinusitis, infection, tumor, headache, temporal arteritis and carbon monoxide exposure, and migraine. The patient was discharged home in stable condition with her driving. DIAGNOSIS: Migraine headache Problem List Medical Problems: (1) Migraine Unspecified W/O Intractable Migraine Status: Chronic (2) Obesity, Nos Status: Chronic (3) Tonsillectomy Status: Resolved Current/Historical Medications Scheduled Cetirizine (Zyrtec), 10 MG PO DAILY Cholecalciferol (Vitamin D3), 2,000 INTER.UNIT PO DAILY Multivit/Min/Iron/Fol Ac/Pren ( Vitamin), 1 TAB PO DAILY Turmeric (Curcuma Longa) (Turmeric), 1,000 MG PO BID Scheduled PRN Neqmaun-Knfnkjoxnuoat-Pjvpxfby (Excedrin Migraine), 2 TABS PO DAILY PRN for Migraine Yyuokpabxl-Brppqnf-Xqgilqmt (Butal/Asa/Caff), 1-2 CAP PO Q4H PRN for Migraine Clonazepam (Clonazepam), 1 MG PO BID PRN for Anxiety Oxycodone/Acetaminophen 5MG/325MG (Oxycodone/Acetaminophen 5MG/325MG), 1-2 TABS PO Q6H PRN for Migraine Promethazine Hcl (Phenergan), 25 MG PO Q4H PRN for Nausea Sumatriptan Succinate (Imitrex), 100 MG PO UD PRN for Migraine Allergies Coded Allergies: Cefuroxime (Verified Allergy, Intermediate, mouth ulcers, 01/02/17) Sulfa Drugs (Verified Allergy, Mild, 01/02/17) Ondansetron (Verified Allergy, Unknown, SWELLING, 01/02/17) Penicillins (Verified Allergy, Unknown, UNKN, 01/02/17) Tramadol (Verified Adverse Reaction, Unknown, MIGRAINE, 01/02/17) PT TOOK TRAMADOL THIS MORNING, THINKS MIGRAINE MIGHT BE FROM THAT Vital Signs Date Time Temp Pulse Resp B/P Pulse Ox O2 Delivery O2 Flow Rate FiO2 02/12/17 20:12 80 16 115/74 100 02/12/17 19:05 36.4 91 18 135/82 99 Room Air Medications Administered Medications (Trade) Dose Ordered Sig/Vickey Route Start Time Stop Time Status Last Admin Dose Admin Morphine Sulfate (MoRPHine SULFATE INJ) 10 mg NOW STAT IM 02/12/17 19:23 02/12/17 19:26 DC 02/12/17 19:34 10 MG Ketorolac Tromethamine (Toradol Inj) 60 mg NOW STAT IM 02/12/17 19:23 02/12/17 19:26 DC 02/12/17 19:33 60 MG Promethazine HCl (Phenergan Inj) 50 mg NOW STAT IM 02/12/17 19:23 02/12/17 19:26 DC 02/12/17 19:33 50 MG Departure Information Impression Primary Impression: Migraine Dispostion Home / Self-Care Condition GOOD Referrals Andrew Bee MD (PCP) Patient Instructions My [facility] Additional Instructions You have been treated in the Emergency Department for a Headache. You have received pain medicine in the emergency department which impairs your ability to operate a vehicle. It is illegal for you to drive after receiving these medicines. For pain control, you can use the following dkiu-kxs-fqmoroe medicines (if >12 yo): - Regular strength (325mg/tab) Tylenol (acetaminophen) 2 tabs every 4-6 hours as needed. Do not exceed 12 tablets in a 24 hour period. Avoid taking more than 4 grams (4000 mg) of Tylenol per day. This includes any other sources of acetaminophen you may take on a regular basis. - Regular strength (200 mg/tab) Advil (ibuprofen) 1-2 tabs every 4-6 hours as needed. Do not exceed a dose of 3200 mg per day. You should relax in a quiet, dark place for the rest of the day. Avoid any possible triggers including: cigarette smoke, caffeine, nicotine, chocolate, wine, beer, loud noises or music, or bright lights. Follow-up with your neurologist as scheduled. Return to the Emergency Department if your current symptoms worsen despite treatment course outlined above, or if you develop any of the following symptoms : intractable pain despite aforementioned treatment course, visual disturbances , loss of vision, unilateral weakness or facial drooping, slurring of speech, loss of coordination, or loss of consciousness. Problem Qualifiers Primary Impression: Migraine Migraine type: unspecified Status migrainosus presence: without status migrainosus Intractability: not intractable Qualified Codes: G43.909 - Migraine, unspecified, not intractable, without status migrainosus
[2017-02-12 20:12] VITALS: BP 115/74; PULSE 80; O2SAT 100
[2017-03-12] MEDS ORDERED: PROM25TA9 PO (09:03)
[2017-03-12] MEDS ORDERED: ASPI-390 PO (10:58)
[2017-03-12] MEDS ORDERED: IMT100 PO (12:31)
[2017-03-12] MEDS ORDERED: CETI10TA84 PO (15:34)
[2017-03-12] MEDS ORDERED: CHOL2000 PO (15:57)
[2017-03-12] MEDS ORDERED: TURM1CAP4 PO (16:03)
[2017-03-12] MEDS ORDERED: KLN1X PO (16:07)
[2017-03-12] MEDS ORDERED: BUTACAP7 PO (16:07)
[2017-03-12] MEDS ORDERED: PRENTAB26 PO (17:20)
== END 2017-02-12 20:13 | disposition home or self-care (01) ==
LOC: C.EDB 19:04 → C.EDD 20:13
DX: G43.909 Migraine, unspecified, not intractable, without status migrainosus (principal); Z79.899 Other long term (current) drug therapy; Z98.890 Other specified postprocedural states; Z88.0 Allergy status to penicillin; Z88.2 Allergy status to sulfonamides; Z88.8 Allergy status to other drugs, medicaments and biological substances

== ENCOUNTER 2017-03-04 14:25 | Emergency (ER) | payer BC ==
[~2017-03-04] VITALS: Ht 170.2 cm; Wt 151.7 kg
[2017-03-04 14:26] VITALS: TEMP 36.7; Ht 170.2 cm; Wt 151.7 kg
[2017-03-04] MEDS ORDERED: KETOROLAC TROMETHAMINE 60 MG/2 ML VIAL IM STA (15:26)
[2017-03-04] MEDS ORDERED: PROMETHAZINE HCL INJ 25 MG/ML 1 ML VIAL IM STA (15:26)
[2017-03-04] MEDS ORDERED: MoRPHine SULFATE 10 MG/ML CARP/VIAL IM STA (15:26)
--- NOTE | 2017-03-04 15:41 | EMERGENCY ROOM VISIT NOTE ---
ED Visit Note First contact with patient: 14:40 CHIEF COMPLAINT: Migraine headache HISTORY OF PRESENT ILLNESS: This 31-year-old female patient presented to the emergency department with her with a gradual onset of a severe generalized headache that started 5-6 days ago. The patient states the migraine is similar to their typical migraines. There has been associated photophobia, phonophobia, and nausea, with no vomiting. The patient denies fever or chills recently, and there is no weakness or numbness of the extremities. There is no difficulty with speech or vision. No trauma to the head and no neck pain. The pain is severe, constant, and it is slowly increasing in severity. The patient rates the pain as throbbing and 9/10. The patient has taken all of her home medications including Excedrin Migraine, Fiorinal, Imitrex, and Percocet, however none of these have helped her symptoms. This is not the worst headache of the life and is similar to previous migraines. Previous imaging studies of the brain have been normal. The patient is listed on the ED treatment plan for 2 injections per month, she readily tells me that she is given IM morphine, Toradol, and Phenergan to treat her migraines. REVIEW OF SYSTEMS: A review of systems was performed with positives and pertinent negatives listed in the history of present illness. All other systems were reviewed and are negative. ALLERGIES: See chart MEDICATIONS: See chart PMH: See chart SOCIAL HISTORY: See chart PHYSICAL EXAM: Vital Signs: Reviewed Nurse's notes, vital signs stable. GENERAL : Pleasant and cooperative, resting quietly in the stretcher with the lights off and wearing sunglasses, who appears in pain, but non toxic in appearance and in no acute distress. MENTAL STATUS: Alert, oriented, and coherent. HEENT: Normocephalic. PERRLA. EOMI. Nares patent without nuchal rigidity. Tympanic membranes pearly silva without erythema or effusion bilaterally. Mucous membranes moist. NECK: Supple, no nuchal rigidity, nontender, no lymphadenopathy. HEART: Regular rhythm and normal rate without murmurs, ectopy, gallops, or rubs. LUNGS: Clear to auscultation bilaterally without wheezes, rales or rhonchi. No dullness to percussion. No accessory muscle use. No retractions. SKIN: Normal. NEUROLOGICAL: Pupils are round, equal and react to light. The optic fundi are normal and the discs are flat. The patient moves all extremities well and the gait is normal. EMERGENCY DEPARTMENT COURSE: I examined the patient. The patient is on a 2 narcotic injection per month treatment plan for their migraines. The patient was given IM morphine, Toradol, and Phenergan per their usual protocol. The differential diagnosis includes acute intracranial bleed, meningitis, encephalitis, mass or mass effect, sinusitis, infection, tumor, headache, temporal arteritis and carbon monoxide exposure, and migraine. Based on patient 's exam and presentation, this seems consistent with her previous migraines. I did discuss with the patient that her ED treatment plan is not in her best interest for the treatment of her migraines, as the use of narcotics can increase rebound migraine headaches and promote narcotic addiction. I encouraged the patient to follow closely with her neurologist to further discuss the ongoing treatment of her migraine headaches, she states she has an appointment scheduled for tomorrow and will keep this. The patient was discharged home in stable condition with her driving. Problem List Medical Problems: (1) Migraine Unspecified W/O Intractable Migraine Status: Chronic (2) Obesity, Nos Status: Chronic (3) Tonsillectomy Status: Resolved Current/Historical Medications Scheduled Cetirizine (Zyrtec), 10 MG PO DAILY Cholecalciferol (Vitamin D3), 2,000 INTER.UNIT PO DAILY Multivit/Min/Iron/Fol Ac/Pren ( Vitamin), 1 TAB PO DAILY Turmeric (Curcuma Longa) (Turmeric), 1,000 MG PO BID Scheduled PRN Kaurmor-Inilyyduqzikr-Xeunkdij (Excedrin Migraine), 2 TABS PO DAILY PRN for Migraine Juqbllgpgu-Jetlyfy-Icyiyavi (Butal/Asa/Caff), 1-2 CAP PO Q4H PRN for Migraine Clonazepam (Clonazepam), 1 MG PO BID PRN for Anxiety Oxycodone/Acetaminophen 5MG/325MG (Oxycodone/Acetaminophen 5MG/325MG), 1-2 TABS PO Q6H PRN for Migraine Promethazine Hcl (Phenergan), 25 MG PO Q4H PRN for Nausea Sumatriptan Succinate (Imitrex), 100 MG PO UD PRN for Migraine Allergies Coded Allergies: Cefuroxime (Verified Allergy, Intermediate, mouth ulcers, 01/02/17) Sulfa Drugs (Verified Allergy, Mild, 01/02/17) Ondansetron (Verified Allergy, Unknown, SWELLING, 01/02/17) Penicillins (Verified Allergy, Unknown, UNKN, 01/02/17) Tramadol (Verified Adverse Reaction, Unknown, MIGRAINE, 01/02/17) PT TOOK TRAMADOL THIS MORNING, THINKS MIGRAINE MIGHT BE FROM THAT Vital Signs Date Time Temp Pulse Resp B/P (MAP) Pulse Ox O2 Delivery O2 Flow Rate FiO2 03/04/17 16:30 80 16 123/70 98 Room Air 03/04/17 14:26 36.7 92 20 151/101 95 Room Air Medications Administered Medications (Trade) Dose Ordered Sig/Vickey Route Start Time Stop Time Status Last Admin Dose Admin Morphine Sulfate (MoRPHine SULFATE INJ) 10 mg NOW STAT IM 03/04/17 15:26 03/04/17 15:29 DC 03/04/17 15:36 10 MG Ketorolac Tromethamine (Toradol Inj) 60 mg NOW STAT IM 03/04/17 15:26 03/04/17 15:29 DC 03/04/17 15:36 60 MG Promethazine HCl (Phenergan Inj) 25 mg NOW STAT IM 03/04/17 15:26 03/04/17 15:29 DC 03/04/17 15:37 25 MG Departure Information Impression Primary Impression: Migraine Dispostion Home / Self-Care Condition GOOD (the or anybody in all treatment plan for the back is) Referrals Andrew Bee MD (PCP) Patient Instructions My [facility] Additional Instructions Keep your scheduled appointment with your neurologist tomorrow. You should discuss ongoing management of your migraines with your neurologist at this appointment. You have been treated in the Emergency Department for a Headache. You have received narcotic pain medicine in the emergency department which impairs your ability to operate a vehicle. It is illegal for you to drive after receiving these medicines. Continue to use your prescribed medications to treat your ongoing migraines. You should relax in a quiet, dark place for the rest of the day. Avoid any possible triggers including: cigarette smoke, caffeine, nicotine, chocolate, wine, beer, loud noises or music, or bright lights. Return to the Emergency Department if your current symptoms worsen despite treatment course outlined above, or if you develop any of the following symptoms : intractable pain despite aforementioned treatment course, visual disturbances , loss of vision, unilateral weakness or facial drooping, slurring of speech, loss of coordination, or loss of consciousness. Problem Qualifiers Primary Impression: Migraine Migraine type: unspecified Intractability: intractable
[2017-03-04 16:30] VITALS: BP 123/70; PULSE 80; O2SAT 98
[2017-03-12] MEDS ORDERED: PROM25TA9 PO (09:03)
[2017-03-12] MEDS ORDERED: ASPI-390 PO (10:58)
[2017-03-12] MEDS ORDERED: IMT100 PO (12:31)
[2017-03-12] MEDS ORDERED: CETI10TA84 PO (15:34)
[2017-03-12] MEDS ORDERED: CHOL2000 PO (15:57)
[2017-03-12] MEDS ORDERED: TURM1CAP4 PO (16:03)
[2017-03-12] MEDS ORDERED: BUTACAP7 PO (16:07)
[2017-03-12] MEDS ORDERED: KLN1X PO (16:07)
[2017-03-12] MEDS ORDERED: PRENTAB26 PO (17:20)
== END 2017-03-04 16:33 | disposition home or self-care (01) ==
LOC: C.EDB 14:26 → C.EDD 16:33
DX: G43.909 Migraine, unspecified, not intractable, without status migrainosus (principal); Z79.899 Other long term (current) drug therapy; Z88.0 Allergy status to penicillin; Z88.2 Allergy status to sulfonamides; Z88.8 Allergy status to other drugs, medicaments and biological substances

== ENCOUNTER 2017-03-12 17:45 | Emergency (ER) | payer BC ==
[~2017-03-12] VITALS: Ht 170.2 cm; Wt 151.6 kg
[~2017-03-12 17:45] MED LIST changes: +ASPI-390 PO; +BUTACAP7 PO; +CETI10TA84 PO; +CHOL2000 PO; +IMT100 PO; +KLN1X PO; +PRENTAB26 PO; -PROM1SUP19 PR; +PROM25TA9 PO; +TURM1CAP4 PO
[2017-03-12 17:48] VITALS: TEMP 36.7; Ht 170.2 cm; Wt 151.6 kg
[2017-03-12] MEDS ORDERED: OXYC-643 PO (18:01)
[2017-03-12] MEDS ORDERED: PROMETHAZINE HCL INJ 25 MG/ML 1 ML VIAL IM STA (18:39)
[2017-03-12] MEDS ORDERED: KETOROLAC TROMETHAMINE 60 MG/2 ML VIAL IM STA (18:39)
[2017-03-12] MEDS ORDERED: MoRPHine SULFATE 10 MG/ML CARP/VIAL IM STA (18:39)
[2017-03-12 18:57] VITALS: BP 123/70; PULSE 80; O2SAT 100
--- NOTE | 2017-03-12 19:18 | EMERGENCY ROOM VISIT NOTE ---
ED Visit Note First contact with patient: 18:05 CHIEF COMPLAINT: Migraine headache HISTORY OF PRESENT ILLNESS: This 31-year-old female patient presented to the emergency department with her with a gradual onset of a severe generalized headache that started 3 days ago. Patient states she awoke 3 days ago with migraine, however did not take her Imitrex because she is unable to work when she takes Imitrex. Patient states she does have a family work completed from her doctor for her migraines, however she decided not to use the time off in order to take Imitrex for her migraine. Patient states she did see her neurologist last week, who prescribed a new medication to try. Patient states her neurologist instructed her, however, to not start this medication until after she is fitted for a emergency medical service coordinator due to TMJ. She states he wanted to see if the emergency medical service coordinator would help without medication. The patient states the migraine is similar to their typical migraines. There has been associated photophobia, phonophobia, nausea, but no vomiting. The patient denies fever or chills recently, and there is no weakness or numbness of the extremities. There is no difficulty with speech or vision. No trauma to the head and no neck pain. The pain is severe, constant, and it is slowly increasing in severity. Pain is located in the front left of her head, which she states is typical of her migraines. The patient rates the pain as steady and 6/10. The patient has taken Excedrin Migraine, Fiorinal, and phenergan without relief. This is not the worst headache of the life and is similar to previous migraines. Previous imaging studies of the brain have been normal. REVIEW OF SYSTEMS: A review of systems was performed with positives and pertinent negatives listed in the history of present illness. All other systems were reviewed and are negative. ALLERGIES: Cefuroxime, Ondansetron, Tramadol, PCN, Sulfa MEDICATIONS: Excedrin Migraine, Percocet, multivitamin, Imitrex, clonazepam, tumor, Phenergan, vitamin D3, Zyrtec, magnesium, Rokcbekbzr-Logbkhq-Fjoufrgt PMH: Migraine headaches, anxiety SOCIAL HISTORY: Patient lives locally with her . She denies smoking, alcohol, drug use. PHYSICAL EXAM: Vital Signs: Reviewed Nurse's notes, vital signs stable. GENERAL : 31-year-old female, who appears in pain, but non toxic in appearance and in no acute distress. MENTAL STATUS: Alert, oriented, and coherent. HEENT: Normocephalic. PERRLA. EOMI. Nares patent without nuchal rigidity. Tympanic membranes pearly silva without erythema or effusion bilaterally. Mucous membranes moist. NECK: Supple, no nuchal rigidity, nontender, no lymphadenopathy. HEART: Regular rhythm and normal rate without murmurs, ectopy, gallops, or rubs. LUNGS: Clear to auscultation bilaterally without wheezes, rales or rhonchi. No dullness to percussion. No accessory muscle use. No retractions. SKIN: Normal. NEUROLOGICAL: Pupils are round, equal and react to light. The optic fundi are normal and the discs are flat. The patient moves all extremities well and the gait is normal. Strength 5/5 in all extremities. EMERGENCY DEPARTMENT COURSE: I examined the patient. The patient is on a 2 narcotic injection per month treatment plan for their migraines. The patient was given morphine 10 mg IM, Phenergan 25 mg IM, Toradol 60 mg IM per their usual protocol. The differential diagnosis includes acute intracranial bleed, meningitis, encephalitis, mass or mass effect, sinusitis, infection, tumor, headache, temporal arteritis and carbon monoxide exposure, and migraine. The patient was discharged home in stable condition with her driving. DIAGNOSIS: Migraine headache DISCHARGE INSTRUCTIONS & TREATMENT: No driving or alcohol. Rest at home in a quiet dark place. Continue medications as prescribed. Follow up with your neurologist and family doctor if symptoms persist. Problem List Medical Problems: (1) Migraine Unspecified W/O Intractable Migraine Status: Chronic (2) Obesity, Nos Status: Chronic (3) Tonsillectomy Status: Resolved Current/Historical Medications Scheduled Cetirizine (Zyrtec), 10 MG PO DAILY Cholecalciferol (Vitamin D3), 2,000 INTER.UNIT PO DAILY Multivit/Min/Iron/Fol Ac/Pren ( Vitamin), 1 TAB PO DAILY Turmeric (Curcuma Longa) (Turmeric), 1,000 MG PO BID Scheduled PRN Puldsqz-Dulwenzuarqgu-Ftteiljn (Excedrin Migraine), 2 TABS PO DAILY PRN for Migraine Ccoodhssuy-Zqqqxzl-Epcnrhst (Butal/Asa/Caff), 1-2 CAP PO Q4H PRN for Migraine Clonazepam (Clonazepam), 1 MG PO BID PRN for Anxiety Oxycodone/Acetaminophen 5MG/325MG (Oxycodone/Acetaminophen 5MG/325MG), 1-2 TABS PO Q6H PRN for Migraine Promethazine Hcl (Phenergan), 25 MG PO Q4H PRN for Nausea Sumatriptan Succinate (Imitrex), 100 MG PO UD PRN for Migraine Allergies Coded Allergies: Cefuroxime (Verified Allergy, Intermediate, mouth ulcers, 01/02/17) Sulfa Drugs (Verified Allergy, Mild, 01/02/17) Ondansetron (Verified Allergy, Unknown, SWELLING, 01/02/17) Penicillins (Verified Allergy, Unknown, UNKN, 01/02/17) Tramadol (Verified Adverse Reaction, Unknown, MIGRAINE, 01/02/17) PT TOOK TRAMADOL THIS MORNING, THINKS MIGRAINE MIGHT BE FROM THAT Vital Signs Date Time Temp Pulse Resp B/P (MAP) Pulse Ox O2 Delivery O2 Flow Rate FiO2 03/12/17 18:57 80 16 123/70 100 Room Air 03/12/17 17:48 36.7 96 17 146/102 95 Room Air Medications Administered Medications (Trade) Dose Ordered Sig/Vickey Route Start Time Stop Time Status Last Admin Dose Admin Ketorolac Tromethamine (Toradol Inj) 60 mg NOW STAT IM 03/12/17 18:39 03/12/17 18:41 DC 03/12/17 18:54 60 MG Morphine Sulfate (MoRPHine SULFATE INJ) 10 mg NOW STAT IM 03/12/17 18:39 03/12/17 18:41 DC 03/12/17 18:54 10 MG Promethazine HCl (Phenergan Inj) 25 mg NOW STAT IM 03/12/17 18:39 03/12/17 18:41 DC 03/12/17 18:54 25 MG Departure Information Impression Primary Impression: Migraine Dispostion Home / Self-Care Condition GOOD Referrals Andrew Bee MD (PCP) Patient Instructions My [facility] Additional Instructions DO NOT drive, drink alcohol, operate machinery, or perform dangerous activities today. You were given medications in the ER that can affect your ability to safely function or operate a vehicle. Rest today in a quiet, peaceful, dark environment and get a full 8-10 hrs of sleep tonight. Drink plenty of fluids. Avoid loud noises, smoke/smoking, alcohol, bright lights, caffeine, stress, or physical exertion today to minimize the chance the headache may return. Continue current medications as prescribed. Ibuprofen(Motrin, Advil) may be used for fever or pain. Use 600mg every six hours as needed. Take with food. Avoid using more than 2400mg in a 24 hour period. Do not use 2400mg per day for more than three consecutive days without physician direction. Prolonged inappropriate use can lead to stomach upset or ulcers. (AND/OR) Acetaminophen(Tylenol) may be used for fever or pain. Use 1000mg every six hours as needed. Avoid using more than 4000mg in a 24 hour period. Return to the ER for passing out, worsening headache, vision problems, neck stiffness/pain, fevers, vomiting, worsening of your condition, or as needed. Continue to Follow-up regularly with your neurologist regarding ongoing management of your migraines. Problem Qualifiers Primary Impression: Migraine Migraine type: without aura Status migrainosus presence: without status migrainosus Intractability: intractable Qualified Codes: G43.019 - Migraine without aura, intractable, without status migrainosus
== END 2017-03-12 19:26 | disposition home or self-care (01) ==
LOC: C.EDB 17:46 → C.EDD 19:26
DX: G43.019 Migraine without aura, intractable, without status migrainosus (principal); E66.9 Obesity, unspecified; Z79.899 Other long term (current) drug therapy

== ENCOUNTER 2017-04-10 21:08 | Emergency (ER) | payer BC ==
[~2017-04-10] VITALS: Ht 170.2 cm; Wt 154.5 kg
[~2017-04-10 21:08] MED LIST changes: +OXYC-643 PO
[2017-04-10 21:10] VITALS: BP 156/103; PULSE 106; TEMP 36.5; O2SAT 97; Ht 170.2 cm; Wt 154.5 kg
[2017-04-10] MEDS ORDERED: PROMETHAZINE HCL INJ 25 MG/ML 1 ML VIAL IM STA (21:20)
[2017-04-10] MEDS ORDERED: KETOROLAC TROMETHAMINE 60 MG/2 ML VIAL IM STA (21:20)
[2017-04-10] MEDS ORDERED: MoRPHine SULFATE 10 MG/ML CARP/VIAL IM STA (21:20)
--- NOTE | 2017-04-10 21:26 | EMERGENCY ROOM VISIT NOTE ---
ED Visit Note First contact with patient: 21:13 CHIEF COMPLAINT: Migraine headache 3 days HISTORY OF PRESENT ILLNESS: Patient is a 31-year-old white female who presents the emergency department from the by her for evaluation of a migraine headache that started 3 days ago. Her symptoms started on , but more tolerable, and partially controlled with her home medications including Excedrin Migraine, Percocet, Imitrex, Fiorinal and Phenergan. She started her menses today however, and subsequently her headache has worsened. She states that this is common for her. She reports a headache that is constant and pounding and rates it a 7/10. She has associated nausea without vomiting. The patient states the migraine is similar to their typical migraines. There has been associated photophobia and phonophobia. The patient denies cold or upper respiratory symptoms, fever or chills. No difficulty with balance, speech or coordination. No weakness or numbness of the extremities. The patient sees Dr. Hinkle and Ainsley Zee PA-C of neurology. She was just seen by them recently. She reports she was fitted with a mouth guard to treat bruxism to see if this helps with her migraines. REVIEW OF SYSTEMS: Review of systems as per HPI. All other systems reviewed were negative. 10 systems reviewed. PMH: Electronic medical records are reviewed and summarized as above/below. See Problem List. SOCIAL HISTORY: The patient lives locally with her . Nonsmoker. PHYSICAL EXAM: . Vital Signs: Reviewed Nurse's notes. General Appearance: Patient is a morbidly obese 31-year-old white female who is awake and alert and laying in a darkened room in no acute distress. Eyes: Pupils equal round reactive to light extraocular muscles are intact, no proptosis, mild photophobia ENT: Oropharynx is clear, mucous membranes are moist, tympanic membranes are clear bilaterally, no sinus or dental tenderness Neck: Supple, no cervical lymphadenopathy, no meningismus Heart: Regular rate and rhythm, S1 and S2 Lungs: Clear to auscultation bilaterally, no wheezes Rales or rhonchi, no increased work of breathing Abdomen: Soft nontender nondistended. Normal active bowel sounds. No rebound. No guarding. Back: No midline tenderness to palpation. : No CVA tenderness to palpation. Skin: Warm, no diaphoresis, no rashes. Extremities: No cyanosis, clubbing, or edema Neurologic: Patient is awake alert, and oriented x 3. Cranial nerves 2-12 are grossly intact. Motor 5 out of 5 strength bilateral upper extremities and lower extremities. No gross sensory deficits. Reflexes are 2+ throughout. EMERGENCY DEPARTMENT COURSE: The patient was seen and evaluated as above. Old records are reviewed. She is presently on a treatment plan restricting her to 2 narcotic injections per month. This is her first visit for April. She was given morphine 10 mg, Phenergan 50 mg and Toradol 60 mg IM per her treatment plan, and discharged home with her driving. She rated her pain a 7/10 at discharge. Blood pressure screening: Patient was found to have a slightly elevated blood pressure due to circumstances. I do not believe that the patient requires hypertension monitoring. Medication reconciliation: I attest that I have personally reviewed the patient' s current medication list. Differential diagnoses includes acute intracranial bleed, meningitis, encephalitis, mass or mass effect, sinusitis, infection, tumor, headache, temporal arteritis and carbon monoxide exposure, and migraine. Problem List Medical Problems: (1) Migraine Unspecified W/O Intractable Migraine Status: Chronic (2) Obesity, Nos Status: Chronic (3) Tonsillectomy Status: Resolved Current/Historical Medications Scheduled Cetirizine (Zyrtec), 10 MG PO DAILY Cholecalciferol (Vitamin D3), 2,000 INTER.UNIT PO DAILY Multivit/Min/Iron/Fol Ac/Pren ( Vitamin), 1 TAB PO DAILY Turmeric (Curcuma Longa) (Turmeric), 1,000 MG PO BID Scheduled PRN Peyvnjs-Zxwibaaitftky-Hqryfryi (Excedrin Migraine), 2 TABS PO DAILY PRN for Migraine Cgydqdskhg-Glnkrki-Rprjoalv (Butal/Asa/Caff), 1-2 CAP PO Q4H PRN for Migraine Clonazepam (Clonazepam), 1 MG PO BID PRN for Anxiety Oxycodone/Acetaminophen 5MG/325MG (Oxycodone/Acetaminophen 5MG/325MG), 1-2 TABS PO Q6H PRN for Migraine Promethazine Hcl (Phenergan), 25 MG PO Q4H PRN for Nausea Sumatriptan Succinate (Imitrex), 100 MG PO UD PRN for Migraine Allergies Coded Allergies: Cefuroxime (Verified Allergy, Intermediate, mouth ulcers, 01/02/17) Sulfa Drugs (Verified Allergy, Mild, 01/02/17) Ondansetron (Verified Allergy, Unknown, SWELLING, 01/02/17) Penicillins (Verified Allergy, Unknown, UNKN, 01/02/17) Tramadol (Verified Adverse Reaction, Unknown, MIGRAINE, 01/02/17) PT TOOK TRAMADOL THIS MORNING, THINKS MIGRAINE MIGHT BE FROM THAT Vital Signs Date Time Temp Pulse Resp B/P (MAP) Pulse Ox O2 Delivery O2 Flow Rate FiO2 04/10/17 21:10 36.5 106 16 156/103 97 Room Air Medications Administered Medications (Trade) Dose Ordered Sig/Vickey Route Start Time Stop Time Status Last Admin Dose Admin Morphine Sulfate (MoRPHine SULFATE INJ) 10 mg NOW STAT IM 04/10/17 21:20 04/10/17 21:22 DC 04/10/17 21:31 10 MG Ketorolac Tromethamine (Toradol Inj) 60 mg NOW STAT IM 04/10/17 21:20 04/10/17 21:22 DC 04/10/17 21:32 60 MG Promethazine HCl (Phenergan Inj) 50 mg NOW STAT IM 04/10/17 21:20 04/10/17 21:22 DC 04/10/17 21:31 50 MG Departure Information Impression Primary Impression: Headache Referrals Andrew Bee MD (PCP) Patient Instructions My [facility] Additional Instructions DO NOT drive, drink alcohol, operate machinery, or perform dangerous activities today. You were given medications in the ER that can affect your ability to safely function or operate a vehicle. Rest today in a quiet, peaceful, dark environment and get a full 8-10 hrs of sleep tonight. Avoid loud noises, smoke/smoking, alcohol, bright lights, stress, or physical exertion today to minimize the chance the headache may return. Continue current medications. Return to the ER for passing out, worsening headache, vision problems, neck stiffness/pain, fevers, vomiting, worsening of your condition, or as needed. Follow up with your primary physician in 2-3 days for a recheck of your current condition.
== END 2017-04-10 21:48 | disposition home or self-care (01) ==
LOC: C.EDB 21:09 → C.EDD 21:48
DX: G43.909 Migraine, unspecified, not intractable, without status migrainosus (principal); E66.01 Morbid (severe) obesity due to excess calories; Z68.43 Body mass index [BMI] 50.0-59.9, adult; Z79.899 Other long term (current) drug therapy

== ENCOUNTER 2017-04-16 17:14 | Emergency (ER) | payer BC ==
[~2017-04-16] VITALS: Ht 170.2 cm; Wt 150.0 kg
[2017-04-16 17:21] VITALS: TEMP 36.3; Ht 170.2 cm; Wt 150.0 kg
[2017-04-16] MEDS ORDERED: MoRPHine SULFATE 10 MG/ML CARP/VIAL IM STA (17:44)
[2017-04-16] MEDS ORDERED: PROMETHAZINE HCL INJ 25 MG/ML 1 ML VIAL IM STA (17:44)
[2017-04-16] MEDS ORDERED: KETOROLAC TROMETHAMINE 60 MG/2 ML VIAL IM STA (17:44)
[2017-04-16 18:00] VITALS: BP 137/84; PULSE 74; O2SAT 98
--- NOTE | 2017-04-16 23:48 | EMERGENCY ROOM VISIT NOTE ---
ED Visit Note First contact with patient: 17:27 CHIEF COMPLAINT: Migraine headache HISTORY OF PRESENT ILLNESS: This 31-year-old female patient presented to the emergency department with a gradual onset of a severe generalized headache that started 2 days ago. The patient states the migraine is similar to their typical migraines. There has been associated photophobia, phonophobia, nausea and vomiting. The patient denies fever or chills recently, and there is no weakness or numbness of the extremities. There is no difficulty with speech or vision. No trauma to the head and no neck pain. The pain is severe, constant, and it is slowly increasing in severity. The patient rates the pain as dull and 7/10. The patient has taken mhub-urf-tqxabok analgesics without relief. This is not the worst headache of the life and is similar to previous migraines. Previous imaging studies of the brain have been normal. REVIEW OF SYSTEMS: A review of systems was performed with positives and pertinent negatives listed in the history of present illness. All other systems were reviewed and are negative. ALLERGIES: See EMR MEDICATIONS: See EMR PMH: Chronic migraines SOCIAL HISTORY: Lives locally PHYSICAL EXAM: Vital Signs: Reviewed Nurse's notes, vital signs stable. GENERAL: White female, who appears in pain, but non toxic in appearance and in no acute distress. MENTAL STATUS: Alert, oriented, and coherent. HEENT: Normocephalic. PERRLA. EOMI. Nares patent without nuchal rigidity. Tympanic membranes pearly silva without erythema or effusion bilaterally. Mucous membranes moist. NECK: Supple, no nuchal rigidity, nontender, no lymphadenopathy. HEART: Regular rhythm and normal rate without murmurs, ectopy, gallops, or rubs. LUNGS: Clear to auscultation bilaterally without wheezes, rales or rhonchi. No dullness to percussion. No accessory muscle use. No retractions. SKIN: Normal. NEUROLOGICAL: Pupils are round, equal and react to light. The optic fundi are normal and the discs are flat. The patient moves all extremities well and the gait is normal. EMERGENCY DEPARTMENT COURSE: I examined the patient. The patient is on a 2 narcotic injection per month treatment plan for their migraines. The patient was given 2 mg IM Dilaudid, 60 mg IM Toradol, 50 mg IM Phenergan per their usual protocol. The differential diagnosis includes acute intracranial bleed, meningitis, encephalitis, mass or mass effect, sinusitis, infection, tumor, headache, temporal arteritis and carbon monoxide exposure, and migraine. The patient was discharged home in stable condition with her driving. Problem List Medical Problems: (1) Migraine Unspecified W/O Intractable Migraine Status: Chronic (2) Obesity, Nos Status: Chronic (3) Tonsillectomy Status: Resolved Current/Historical Medications Scheduled Cetirizine (Zyrtec), 10 MG PO DAILY Cholecalciferol (Vitamin D3), 2,000 INTER.UNIT PO DAILY Multivit/Min/Iron/Fol Ac/Pren ( Vitamin), 1 TAB PO DAILY Turmeric (Curcuma Longa) (Turmeric), 1,000 MG PO BID Scheduled PRN Jlnlyye-Rqnqkxhqshvvi-Wnnfezsa (Excedrin Migraine), 2 TABS PO DAILY PRN for Migraine Cfyywkdrqf-Umsdjyb-Invphmxj (Butal/Asa/Caff), 1-2 CAP PO Q4H PRN for Migraine Clonazepam (Clonazepam), 1 MG PO BID PRN for Anxiety Oxycodone/Acetaminophen 5MG/325MG (Oxycodone/Acetaminophen 5MG/325MG), 1-2 TABS PO Q6H PRN for Migraine Promethazine Hcl (Phenergan), 25 MG PO Q4H PRN for Nausea Sumatriptan Succinate (Imitrex), 100 MG PO UD PRN for Migraine Allergies Coded Allergies: Cefuroxime (Verified Allergy, Intermediate, mouth ulcers, 04/16/17) Sulfa Drugs (Verified Allergy, Mild, 04/16/17) Ondansetron (Verified Allergy, Unknown, SWELLING, 04/16/17) Penicillins (Verified Allergy, Unknown, UNKN, 04/16/17) Tramadol (Verified Adverse Reaction, Unknown, MIGRAINE, 04/16/17) PT TOOK TRAMADOL THIS MORNING, THINKS MIGRAINE MIGHT BE FROM THAT Vital Signs Date Time Temp Pulse Resp B/P (MAP) Pulse Ox O2 Delivery O2 Flow Rate FiO2 04/16/17 18:00 74 16 137/84 98 04/16/17 17:21 36.3 89 20 144/94 97 Room Air Medications Administered Medications (Trade) Dose Ordered Sig/Vickey Route Start Time Stop Time Status Last Admin Dose Admin Morphine Sulfate (MoRPHine SULFATE INJ) 10 mg NOW STAT IM 04/16/17 17:44 04/16/17 17:45 DC 04/16/17 17:53 10 MG Promethazine HCl (Phenergan Inj) 50 mg NOW STAT IM 04/16/17 17:44 04/16/17 17:45 DC 04/16/17 17:51 50 MG Ketorolac Tromethamine (Toradol Inj) 60 mg NOW STAT IM 04/16/17 17:44 04/16/17 17:45 DC 04/16/17 17:52 60 MG Departure Information Impression Primary Impression: Migraine Dispostion Home / Self-Care Condition FAIR Referrals Andrew Bee MD (PCP) Forms HOME CARE DOCUMENTATION FORM, IMPORTANT VISIT INFORMATION Patient Instructions My [facility] Additional Instructions You were seen and evaluated today on an emergency basis only. This is not a substitute for, or an effort to provide, complete comprehensive medical care. It is not possible to recognize and treat all injuries or illnesses in a single emergency department visit. For this reason it is recommended that you followup with your primary care physician or neurologist this week for ongoing care and evaluation. DO NOT drive, drink alcohol, operate machinery, or perform dangerous activities today. You were given medications in the ER that can affect your ability to safely function or operate a vehicle. Rest today in a quiet, peaceful, dark environment and get a full 8-10 hrs of sleep tonight. Avoid loud noises, smoke/smoking, alcohol, bright lights, stress, or physical exertion today to minimize the chance the headache may return. Continue current medications. Ibuprofen(Motrin, Advil) may be used for fever or pain. Use 600mg every six hours as needed. Take with food. Avoid using more than 2400mg in a 24 hour period. Do not use 2400mg per day for more than three consecutive days without physician direction. Prolonged inappropriate use can lead to stomach upset or ulcers. (AND/OR) Acetaminophen(Tylenol) may be used for fever or pain. Use 1000mg every six hours as needed. Avoid using more than 4000mg in a 24 hour period. Return to the ER for passing out, worsening headache, vision problems, neck stiffness/pain, fevers, vomiting, worsening of your condition, or as needed.
== END 2017-04-16 18:01 | disposition home or self-care (01) ==
LOC: C.EDB 17:15 → C.EDD 18:01
DX: G43.909 Migraine, unspecified, not intractable, without status migrainosus (principal); E66.9 Obesity, unspecified

== ENCOUNTER 2017-05-08 20:21 | Emergency (ER) | payer BC ==
[~2017-05-08] VITALS: Ht 170.2 cm; Wt 150.7 kg
[2017-05-08 20:22] VITALS: TEMP 36.8; Ht 170.2 cm; Wt 150.7 kg
[2017-05-08] MEDS ORDERED: MoRPHine SULFATE 10 MG/ML CARP/VIAL IM STA (20:31)
[2017-05-08] MEDS ORDERED: KETOROLAC TROMETHAMINE 60 MG/2 ML VIAL IM STA (20:31)
[2017-05-08] MEDS ORDERED: PROMETHAZINE HCL INJ 25 MG/ML 1 ML VIAL IM STA (20:31)
--- NOTE | 2017-05-08 20:36 | EMERGENCY ROOM VISIT NOTE ---
ED Visit Note First contact with patient: 20:27 CHIEF COMPLAINT: Migraine headache HISTORY OF PRESENT ILLNESS: This 31-year-old female patient presented to the emergency department via private vehicle coming by male with a gradual onset of a severe generalized headache that started 4 days ago. The patient states the migraine is similar to their typical migraines. There has been associated photophobia, phonophobia, nausea but no vomiting. The patient denies fever or chills recently, and there is no weakness or numbness of the extremities. There is no difficulty with speech or vision. No trauma to the head and no neck pain. The pain is severe, constant, and it is slowly increasing in severity. The patient rates the pain as severe and 7/10. The patient has taken her regular medications without relief. This is not the worst headache of the life and is similar to previous migraines. Previous imaging studies of the brain have been normal. She denies chance of . REVIEW OF SYSTEMS: A review of systems was performed with positives and pertinent negatives listed in the history of present illness. All other systems were reviewed and are negative. ALLERGIES: As noted below MEDICATIONS: As noted below PMH: Migraine headaches SOCIAL HISTORY: Patient lives locally. PHYSICAL EXAM: Vital Signs: Reviewed Nurse's notes, vital signs stable. GENERAL : 31-year-old female, who appears in pain, but non toxic in appearance and in no acute distress. MENTAL STATUS: Alert, oriented, and coherent. HEENT: Normocephalic. PERRLA. EOMI. Nares patent without nuchal rigidity. Tympanic membranes pearly silva without erythema or effusion bilaterally. Mucous membranes moist. NECK: Supple, no nuchal rigidity, nontender, no lymphadenopathy. HEART: Regular rhythm and normal rate without murmurs, ectopy, gallops, or rubs. LUNGS: Clear to auscultation bilaterally without wheezes, rales or rhonchi. No accessory muscle use. No retractions. SKIN: Normal. NEUROLOGICAL: Pupils are round, equal and react to light. The patient moves all extremities well and the gait is normal. EMERGENCY DEPARTMENT COURSE: I examined the patient. The patient is on a 2 narcotic injection per month treatment plan for their migraines. The patient was given 10 mg of morphine, 50 mg of Phenergan, and 60 mg of Toradol all of which were administered intramuscularly per their usual protocol. The differential diagnosis includes acute intracranial bleed, meningitis, encephalitis, mass or mass effect, sinusitis, infection, tumor, headache, temporal arteritis and carbon monoxide exposure, and migraine. The patient was discharged home in stable condition with male driving. In the evaluation and treatment of this patient, the following differential diagnoses were considered: Migraine Headache, Intracranial Hemorrhage, Subdural Hematoma, Subarachnoid Hemorrhage, Cerebral Aneurysm, Temporal/Giant Cell Arteritis, Tension Headache, Meningitis, Encephalitis, or Hydrocephalus. Problem List Medical Problems: (1) Migraine Unspecified W/O Intractable Migraine Status: Chronic (2) Obesity, Nos Status: Chronic (3) Tonsillectomy Status: Resolved Current/Historical Medications Scheduled Cetirizine (Zyrtec), 10 MG PO HS Cholecalciferol (Vitamin D3), 2,000 INTER.UNIT PO DAILY Multivit/Min/Iron/Fol Ac/Pren ( Vitamin), 1 TAB PO DAILY Turmeric (Curcuma Longa) (Turmeric), 1,000 MG PO BID Scheduled PRN Cpfczqd-Pipkasjrvafnq-Uejvnuqn (Excedrin Migraine), 2 TABS PO DAILY PRN for Migraine Vkbuqdnynq-Gswykfa-Reqekoho (Butal/Asa/Caff), 1-2 CAP PO Q4H PRN for Migraine Clonazepam (Clonazepam), 1 MG PO BID PRN for Anxiety Oxycodone/Acetaminophen 5MG/325MG (Oxycodone/Acetaminophen 5MG/325MG), 1-2 TABS PO Q6H PRN for Migraine Promethazine Hcl (Phenergan), 25 MG PO Q4H PRN for Nausea Sumatriptan Succinate (Imitrex), 100 MG PO UD PRN for Migraine Allergies Coded Allergies: Cefuroxime (Verified Allergy, Intermediate, mouth ulcers, 05/08/17) Sulfa Drugs (Verified Allergy, Mild, 05/08/17) Ondansetron (Verified Allergy, Unknown, SWELLING, 05/08/17) Penicillins (Verified Allergy, Unknown, UNKN, 05/08/17) Tramadol (Verified Adverse Reaction, Unknown, MIGRAINE, 05/08/17) PT TOOK TRAMADOL THIS MORNING, THINKS MIGRAINE MIGHT BE FROM THAT Vital Signs Date Time Temp Pulse Resp B/P (MAP) Pulse Ox O2 Delivery O2 Flow Rate FiO2 05/08/17 21:01 81 16 126/94 97 05/08/17 20:22 36.8 105 18 132/84 93 Room Air Medications Administered Medications (Trade) Dose Ordered Sig/Vickey Route Start Time Stop Time Status Last Admin Dose Admin Morphine Sulfate (MoRPHine SULFATE INJ) 10 mg NOW STAT IM 05/08/17 20:31 05/08/17 20:33 DC 05/08/17 20:40 10 MG Ketorolac Tromethamine (Toradol Inj) 60 mg NOW STAT IM 05/08/17 20:31 05/08/17 20:33 DC 05/08/17 20:40 60 MG Promethazine HCl (Phenergan Inj) 50 mg NOW STAT IM 05/08/17 20:31 05/08/17 20:33 DC 05/08/17 20:41 50 MG Departure Information Impression Primary Impression: Headache Dispostion Home / Self-Care Condition GOOD Referrals Andrew Bee MD (PCP) Patient Instructions My [facility] Additional Instructions You have been treated in the Emergency Department for a Headache. You have received pain medicine in the emergency department which impairs your ability to operate a vehicle. It is illegal for you to drive after receiving these medicines. For pain control, you can use the following ssnh-nze-raxnigr medicines: - Regular strength (325mg/tab) Tylenol (acetaminophen) 2 tabs every 4-6 hours as needed. Do not exceed 12 tablets in a 24 hour period. Avoid taking more than 3 grams (3000 mg) of Tylenol per day. This includes any other sources of acetaminophen you may take on a regular basis. - Regular strength (200 mg/tab) Advil (ibuprofen) 1-2 tabs every 4-6 hours as needed. Do not exceed a dose of 3200 mg per day. You should relax in a quiet, dark place for the rest of the day. Avoid any possible triggers including: cigarette smoke, caffeine, nicotine, chocolate, wine, beer, loud noises or music, or bright lights. You should schedule a follow-up appointment in 2-3 days with your Primary Care Provider or established Neurologist for further evaluation and treatment of your Headache. Return to the Emergency Department if your current symptoms worsen despite treatment course outlined above, or if you develop any of the following symptoms : intractable pain despite aforementioned treatment course, visual disturbances , loss of vision, unilateral weakness or facial drooping, slurring of speech, loss of coordination, or loss of consciousness. Please return to emergency department with any new/concerning symptoms.
[2017-05-08 21:01] VITALS: BP 126/94; PULSE 81; O2SAT 97
== END 2017-05-08 21:01 | disposition home or self-care (01) ==
LOC: C.EDB 20:21 → C.EDD 21:01
DX: G43.909 Migraine, unspecified, not intractable, without status migrainosus (principal); E66.9 Obesity, unspecified

== ENCOUNTER 2017-06-06 13:40 | Emergency (ER) | payer BC ==
[~2017-06-06] VITALS: Ht 170.2 cm; Wt 149.8 kg
[2017-06-06 13:53] VITALS: TEMP 36.3; Ht 170.2 cm; Wt 149.8 kg
[2017-06-06] MEDS ORDERED: PROMETHAZINE HCL INJ 25 MG/ML 1 ML VIAL IM STA (14:06)
[2017-06-06] MEDS ORDERED: KETOROLAC TROMETHAMINE 60 MG/2 ML VIAL IM STA (14:06)
[2017-06-06] MEDS ORDERED: MoRPHine SULFATE 10 MG/ML CARP/VIAL IM STA (14:06)
--- NOTE | 2017-06-06 14:26 | EMERGENCY ROOM VISIT NOTE ---
History Report prepared by [place]: Ryder Sorenson Under the Supervision of: Dr. Ingrid Castanon M.D. First contact with patient: 14:02 Chief Complaint: HEADACHE Stated Complaint: MIGRAINE, CRAMPING History of Present Illness The patient is a 31 year old female who presents to the Emergency Room with complaints of a constant headache that started three days ago. She rates her pain as an 8/10 in severity. The patient admits that she has had a headache similar to her current headache in the past. The patient reports that she has been able to keep her headaches away until three days ago. She states that she went off of her control recently, which she believes is causing her headache. The patient states that her menstrual period started yesterday and noticed that her migraine returns when she ovulates or has her menstrual period. She reports that she has been experiencing nausea, which she took Phenergan for, but denies any relief. She also complains of dental pain in the right back molar. 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 Source of History: patient Onset: three days ago Position: head Symptom Intensity: 8/10 Timing: constant Modifying Factors (Worsening): other (menstrual period) Associated Symptoms: + nausea Note: Other symptoms: dental pain. Review of Systems See HPI for pertinent positives & negatives. A total of 10 systems reviewed and were otherwise negative. Past Medical & Surgical Medical Problems: (1) Migraine Unspecified W/O Intractable Migraine (2) Obesity, Nos (3) Tonsillectomy Family History Diabetes mellitus Heart disease Social History Smoking Status: Never Smoker Alcohol Use: none Drug Use: none Marital Status: Housing Status: lives with family Occupation Status: employed Current/Historical Medications Scheduled Cetirizine (Zyrtec), 10 MG PO HS Cholecalciferol (Vitamin D3), 2,000 INTER.UNIT PO DAILY Multivit/Min/Iron/Fol Ac/Pren ( Vitamin), 1 TAB PO DAILY Turmeric (Curcuma Longa) (Turmeric), 1,000 MG PO BID Scheduled PRN Oureexe-Pbnrzzbklvdbj-Diipehdl (Excedrin Migraine), 2 TABS PO DAILY PRN for Migraine Rkcjfslrur-Capoerg-Ectyghym (Butal/Asa/Caff), 1-2 CAP PO Q4H PRN for Migraine Clonazepam (Clonazepam), 1 MG PO BID PRN for Anxiety Oxycodone/Acetaminophen 5MG/325MG (Oxycodone/Acetaminophen 5MG/325MG), 1-2 TABS PO Q6H PRN for Migraine Promethazine Hcl (Phenergan), 25 MG PO Q4H PRN for Nausea Sumatriptan Succinate (Imitrex), 100 MG PO UD PRN for Migraine Allergies Coded Allergies: Cefuroxime (Verified Allergy, Intermediate, mouth ulcers, 05/08/17) Sulfa Drugs (Verified Allergy, Mild, 05/08/17) Ondansetron (Verified Allergy, Unknown, SWELLING, 05/08/17) Penicillins (Verified Allergy, Unknown, UNKN, 05/08/17) Tramadol (Verified Adverse Reaction, Unknown, MIGRAINE, 05/08/17) PT TOOK TRAMADOL THIS MORNING, THINKS MIGRAINE MIGHT BE FROM THAT Physical Exam Vital Signs Date Time Temp Pulse Resp B/P (MAP) Pulse Ox O2 Delivery O2 Flow Rate FiO2 06/06/17 15:20 88 18 136/77 97 06/06/17 14:12 20 141/74 Room Air 06/06/17 13:53 36.3 100 20 163/101 95 Room Air Physical Exam Vital signs reviewed. General: Well-appearing 31 year old female, in no significant distress. No meningeal signs. HEENT: No scleral icterus, PERRLA, neck supple. Atraumatic. Cardiovascular: Regular rate and rhythm, no extra sounds. Pulmonary: Clear to auscultation bilaterally, normal work of breathing. Abdomen: Soft, nontender, nondistended, positive bowel sounds. Musculoskeletal: Atraumatic, no peripheral edema. Neurologic: Patient awake alert and oriented x 3, full strength in all 4 extremities. Cranial nerves 2 through 12 grossly intact. Skin: Warm, dry, no rash Medical Decision & Procedures Medications Administered Medications (Trade) Dose Ordered Sig/Vickey Route Start Time Stop Time Status Last Admin Dose Admin Ketorolac Tromethamine (Toradol Inj) 60 mg NOW STAT IM 06/06/17 14:06 06/06/17 14:07 DC 06/06/17 14:46 60 MG Morphine Sulfate (MoRPHine SULFATE INJ) 10 mg NOW STAT IM 06/06/17 14:06 06/06/17 14:07 DC 06/06/17 14:46 10 MG Promethazine HCl (Phenergan Inj) 25 mg NOW STAT IM 06/06/17 14:06 06/06/17 14:07 DC 06/06/17 14:46 25 MG ED Course 1408: Past medical records reviewed. The patient was evaluated in room C12B. A complete history and physical examination was performed. 1406: Ordered Phenergan Injection 25 mg IM, Morphine Sulfate 10 mg IM, Toradol Injection 60 mg IM. 1452: Upon reevaluation, the patient appeared to have improvement of her symptoms. I discussed findings with the patient. She verbalized agreement of the treatment plan. The patient was discharged home. Medical Decision Differential diagnosis: Intracranial hemorrhage, intracranial mass, migraine headache, tension headache , sinusitis, meningitis This patient was evaluated and appeared to be in no significant distress. Physical examination is fairly unrevealing. The patient has no signs of meningismus. She states this is consistent with her usual headaches. Patient was given 10 mg of IM morphine, 60 mg of IM Toradol and 25 mg of IM Phenergan. She was observed in the emergency department and discharged to the care of her . She'll follow-up with her physician this week for reevaluation return to the ER for worsening symptoms or any medical concerns. Medication Reconcilliation Current Medication List: was personally reviewed by me Blood Pressure Screening Patient's blood pressure: Elevated blood pressure Blood pressure disposition: Elevated BP felt to be situational Impression Primary Impression: Migraine headache Scribe Attestation The scribe's documentation has been prepared under my direction and personally reviewed by me in its entirety. I confirm that the note above accurately reflects all work, treatment, procedures, and medical decision making performed by me. Departure Information Dispostion Home / Self-Care Referrals Andrew Bee MD (PCP) Forms HOME CARE DOCUMENTATION FORM, IMPORTANT VISIT INFORMATION Patient Instructions My [facility] Additional Instructions Diagnosis: Headache Drink plenty of fluids. Continue medications as prescribed. Follow up with your doctor this week for reevaluation. Return to the ED for worsening of symptoms or any medical concerns.
[2017-06-06 15:20] VITALS: BP 136/77; PULSE 88; O2SAT 97
== END 2017-06-06 15:22 | disposition home or self-care (01) ==
LOC: C.EDB 13:41 → C.EDC 15:22
DX: G43.909 Migraine, unspecified, not intractable, without status migrainosus (principal); R11.0 Nausea; K08.89 Other specified disorders of teeth and supporting structures; Z79.899 Other long term (current) drug therapy; Z82.49 Family history of ischemic heart disease and other diseases of the circulatory system; Z83.3 Family history of diabetes mellitus

== ENCOUNTER → 2017-08-11 | Outpatient (CLI) | payer BC ==
--- NOTE | 2017-08-11 18:45 | DIAGNOSTIC IMAGING REPORT ---
CERVICAL SPINE 7 VIEWS CLINICAL HISTORY: Right-sided neck pain of 10 days' duration. FINDINGS: AP, lateral, bilateral oblique, flexion, extension, and odontoid views of the cervical spine are correlated with CT scan of cervical spine dated 10/28/2015. The skeletal structures are well mineralized. There is no radiographic evidence of fracture or subluxation. The odontoid process and lateral masses appear intact on the open mouth view. The spinolaminar line is preserved. Vertebral body height and alignment are maintained. There is straightening of cervical lordosis with mild reversal centered at C4-C5. No bony subluxation is seen on the flexion/extension views. The spinous processes appear intact. The intervertebral disc spaces are normal. There is no evidence of neuroforaminal stenosis on the oblique views. The prevertebral soft tissues are within normal limits. Visualized apical lung parenchyma appears clear. IMPRESSION: No acute bony abnormality is seen involving the cervical spine. Electronically signed by: Cezar Rockwell M.D. 08/11/2017 6:43 PM Dictated Date/Time: 08/11/2017 6:42 PM
== END | disposition home or self-care (01) ==
LOC: C.RAD 18:16
PROVIDERS: ATTEND Internal Medicine
DX: M54.2 Cervicalgia (principal)

== ENCOUNTER 2017-08-22 10:51 | Emergency (ER) | payer BC ==
[~2017-08-22] VITALS: Ht 170.2 cm; Wt 148.0 kg
[2017-08-22 11:06] VITALS: BP 144/85; PULSE 88; TEMP 37.1; O2SAT 97; Ht 170.2 cm; Wt 148.0 kg
[2017-08-22] MEDS ORDERED: NAPR-1169 PO (11:18)
[2017-08-22] MEDS ORDERED: CARI350T27 PO (11:18)
[2017-08-22] MEDS ORDERED: KETOROLAC TROMETHAMINE 60 MG/2 ML VIAL IM STA (11:40)
[2017-08-22] MEDS ORDERED: PRED20TA PO (11:43)
--- NOTE | 2017-08-22 11:45 | EMERGENCY ROOM VISIT NOTE ---
ED Visit Note First contact with patient: 11:23 CHIEF COMPLAINT: Neck pain HISTORY OF PRESENT ILLNESS: This 31-year-old female patient presents to the emergency department ambulatory, with her , complaining of pain in the neck on the right side radiating into her shoulder. The patient states 3 weeks ago, she was dancing around at home, when she turned her neck the wrong way, and felt a snap/crunching sensation on the right side. The patient states that Wednesday, she went to see her PCP and was prescribed naproxen and muscle relaxers. She states since then, she has been to the chiropractor, had deep tissue massages, and has seen her PCP multiple times. She does have an MRI scheduled for next Wednesday. Patient has also been on steroids and muscle relaxers. She states she discontinued her steroids 3 days ago and did not restart her naproxen. She states the pain is now getting worse and spreading from the right side of the neck into the shoulder and towards her back. The pain is all in the muscle, and does not feel like it is in the spine. The patient has been having difficulty sleeping due to the pain. She states the prednisone burst did seem to help, and she has also been on Soma at night. She is unable to tolerate Soma during the day due to fatigue and needing to work. The patient rates the pain as tightness and 6/10. The patient has taken only her Soma this morning for the pain without relief. The patient does not have a history of previous neck problems. The patient does have pain of the left shoulder. The patient denies numbness and tingling. The patient denies chest pain or shortness of breath. There was no head injury and no loss of consciousness. The patient denies headache, blurred vision, abdominal pain, nausea, or vomiting. The patient denies change in personality. She did have an x-ray completed here 3 weeks ago which was ordered by her PCP. REVIEW OF SYSTEMS: A and system system review of systems was completed with positives and pertinent negatives listed in the HPI. ALLERGIES: Ceftin, Zofran, penicillin, sulfa, tramadol MEDICATIONS: Excedrin, vitamins, Imitrex, Fioricet, clonazepam, tumor, Phenergan, vitamin D3, Zyrtec, Soma, Naprosyn PMH: Anxiety, migraines, gluten intolerance SOCIAL HISTORY: The patient lives locally with family. She denies drug, alcohol , tobacco use. PHYSICAL EXAM: VITALS: Vitals are noted on the nurse's note and reviewed by myself. Vital signs stable. GENERAL: This is a 31-year-old obese white female, in no acute distress, nondiaphoretic, well-developed well-nourished. SKIN: Capillary reflex less than 2 seconds. HEENT: Normocephalic. PERRLA. EOMI. Nares patent. Mucous membranes moist. Neck is supple without nuchal rigidity. Cervical spine is not tender to palpation. The patient does have tenderness of the paraspinal muscles on the right. There is tenderness and muscle spasms noted in the trapezius muscle on the right. There is no lymphadenopathy. MUSCULOSKELETAL: The patient has full range of motion of the bilateral arms. Strength 5/5 of the bilateral upper extremities. The patient has tenderness with any movement of the neck. NEURO: Patient was alert and oriented to person place and time. Normal sensation to light and sharp touch. No focal neurologic deficits. EMERGENCY DEPARTMENT COURSE: I examined the patient. I reviewed the patient's cervical spine x-ray and noted there were no bony abnormalities seen. There was straightening of the cervical lordosis with mild reversal centered at C4 and C5. The patient has not been on any anti-inflammatory medication, however she states that does seem to help with her symptoms. She has not performed any physical therapy. Her symptoms do not appear bony or neurological in nature, and do appear to be muscular. Patient does have muscle spasms, however she states the Soma at itself is not helping significantly. I did offer a steroid injection, and patient declines and requests Toradol. The patient was given 60 mg Toradol IM and a prescription for a longer taper of prednisone. The patient was encouraged to follow up outpatient with her PCP as well as requesting a prescription for physical therapy. The patient was in agreement with the assessment and plan. I do not see a reason at this point to order an emergent MRI of the cervical spine, as the symptoms appear muscular in nature. The patient is in agreement with this, discharge instructions were reviewed, the patient was discharged home in good condition. I attest that I have personally reviewed the patient's current medication list. Patient was found to have normal blood pressure on screening and does not require follow-up. DIFFERENTIAL DIAGNOSIS: Cervicalgia, muscle spasms, sprain, strain, cervical fracture, disc protrusion, malignancy, and others DIAGNOSIS: Pain in the right side of the neck and right shoulder, muscle spasms Problem List Medical Problems: (1) Migraine Unspecified W/O Intractable Migraine Status: Chronic (2) Obesity, Nos Status: Chronic (3) Tonsillectomy Status: Resolved Current/Historical Medications Scheduled Cetirizine (Zyrtec), 10 MG PO HS Cholecalciferol (Vitamin D3), 2,000 INTER.UNIT PO DAILY Multivit/Min/Iron/Fol Ac/Pren ( Vitamin), 1 TAB PO DAILY Naproxen (Naprosyn), 500 MG PO BID Prednisone (Prednisone), 0 PO DAILY Turmeric (Curcuma Longa) (Turmeric), 1,000 MG PO BID Scheduled PRN Bspkzom-Jhvoiyhfvdtga-Meybsetn (Excedrin Migraine), 2 TABS PO DAILY PRN for Migraine Tzjggqbncc-Cbyylwk-Wzkdqcol (Butal/Asa/Caff), 1-2 CAP PO Q4H PRN for Migraine Carisoprodol (Soma), 350 MG PO Q6H PRN for Migraine Clonazepam (Clonazepam), 1 MG PO BID PRN for Anxiety Promethazine Hcl (Phenergan), 25 MG PO Q4H PRN for Nausea Sumatriptan Succinate (Imitrex), 100 MG PO UD PRN for Migraine Allergies Coded Allergies: Cefuroxime (Verified Allergy, Intermediate, mouth ulcers, 08/22/17) Sulfa Drugs (Verified Allergy, Mild, 08/22/17) Ondansetron (Verified Allergy, Unknown, SWELLING, 08/22/17) Penicillins (Verified Allergy, Unknown, UNKN, 08/22/17) Tramadol (Verified Adverse Reaction, Unknown, MIGRAINE, 08/22/17) PT TOOK TRAMADOL THIS MORNING, THINKS MIGRAINE MIGHT BE FROM THAT Vital Signs Date Time Temp Pulse Resp B/P (MAP) Pulse Ox O2 Delivery O2 Flow Rate FiO2 08/22/17 11:06 37.1 88 20 144/85 97 Room Air Medications Administered Medications (Trade) Dose Ordered Sig/Vickey Route Start Time Stop Time Status Last Admin Dose Admin Ketorolac Tromethamine (Toradol Inj) 60 mg NOW STAT IM 08/22/17 11:40 08/22/17 11:41 DC 08/22/17 11:48 60 MG Departure Information Impression Primary Impression: Neck and shoulder pain Additional Impression: Muscle spasm Dispostion Home / Self-Care Condition GOOD Prescriptions Prednisone (Prednisone) 20 Mg Tab 0 PO DAILY, #18 TAB 3 DAILY FOR 3 DAYS, THEN 2 DAILY FOR 3 DAYS, THEN 1 DAILY FOR 3 DAYS. Prov: Arcelia Chambers PA-C 08/22/17 Referrals Andrew Bee MD (PCP) [facility] Patient Instructions ED Neck Back Pain General, ED Neck Pain No Trauma, ED Sprain Strain Neck, My [facility] Additional Instructions You have been treated in the Emergency Department for Neck Pain. Continue to take Soma as prescribed. You may take this medication up to 3 times per day. As discussed, I do recommend taking this medication as soon as you get home from work as well as at bedtime, so you can continue to perform well at your job. You have been prescribed Prednisone. This is a steroid which will help decrease your inflammatio. Take this medicine as prescribed. Take the ENTIRE 9 day course. It is best to take steroids early in the morning as PM dosing can affect your sleeping patterns. For pain control, you can use the following eglz-jpo-dhqmzhm medicines (if >12 yo): Ibuprofen(Motrin, Advil) may be used for fever or pain. Use 600mg every six hours as needed. Take with food. Avoid using more than 2400mg in a 24 hour period. Do not use 2400mg per day for more than three consecutive days without physician direction. Prolonged inappropriate use can lead to stomach upset or ulcers. Do not take this medication while taking steroids. You also may use your Naprosyn 500 [address] daily [address] of ibuprofen. (AND/OR) Acetaminophen(Tylenol) may be used for fever or pain. Use 1000mg every six hours as needed. Avoid using more than 3000mg in a 24 hour period. If this is an acute injury, ice can be applied to the area of pain for the first 3 days to help decrease pain and inflammation. After the first 3 days, a heating pad can be used over the area for continued soothing relief. You should schedule a follow-up appointment in 2-3 days with your Primary Care Provider for further evaluation and treatment of your neck pain. You may consider orthopedic follow-up regarding ongoing neck pain. Please follow up for the MRI that you have scheduled for next week. Return to the Emergency Department if your current symptoms worsen despite treatment course outlined above, or if you develop any of the following symptoms : intractable pain despite aforementioned treatment course, facial droop, slurred speech, unilateral weakness, or worsening of her current symptoms. Problem Qualifiers
== END 2017-08-22 11:57 | disposition home or self-care (01) ==
LOC: C.EDB 10:53 → C.EDD 11:57
DX: M54.2 Cervicalgia (principal); M25.511 Pain in right shoulder; M62.838 Other muscle spasm; E66.9 Obesity, unspecified; F41.9 Anxiety disorder, unspecified; K90.41 Non-celiac gluten sensitivity; Z79.899 Other long term (current) drug therapy

== ENCOUNTER → 2017-09-01 | Outpatient (CLI) | payer BC ==
[~2017-09-01] MED LIST changes: +CARI350T27 PO; +NAPR-1169 PO; -OXYC-643 PO; +PRED20TA PO
--- NOTE | 2017-09-01 19:10 | DIAGNOSTIC IMAGING REPORT ---
CERVICAL WITHOUT CONTRAST HISTORY: Pain. Neuropathy. NECK PAIN TECHNIQUE: Multiplanar multisequence MRI of the cervical spine was performed without the use of contrast. COMPARISON STUDY: None. FINDINGS: Signal characteristics of the osseous structures are unremarkable. Signal characteristics of the cervical cord are within normal limits. Disc signal is unremarkable. C2-C3: No significant central canal or neural foraminal narrowing. C3-C4: No significant central canal or neural foraminal narrowing. C4-C5: No significant central canal or neural foraminal narrowing. C5-C6: No significant central canal or neural foraminal narrowing. C6-C7: No significant central canal or neural foraminal narrowing. C7-T1: No significant central canal or neural foraminal narrowing. IMPRESSION: Mild straightening of the cervical curvature possibly due to muscular spasm. Otherwise negative study. No evidence for disc herniation or spinal stenosis. The above report was generated using voice recognition software. It may contain grammatical, syntax or spelling errors. Electronically signed by: Hal Means M.D. 09/01/2017 7:08 PM Dictated Date/Time: 09/01/2017 7:04 PM
== END | disposition home or self-care (01) ==
LOC: C.MRI 17:54
PROVIDERS: ATTEND Internal Medicine
DX: M54.2 Cervicalgia (principal)